=== PATIENT | female | born 1965 | race Caucasian/White ===

== ENCOUNTER 2022-03-21 14:02 | Inpatient (IN) | payer BC, OTHER ==
[~2022-03-21] VITALS: Ht 160 cm; Wt 81.6 kg
[2022-03-21] MEDS ORDERED: LORAZEPAM 2 MG/1 ML VIAL IV ONE ×4 (14:15→21:28)
[2022-03-21 14:23] LABS: HEMATOCRIT 48.5 % (31.2-41.9); MEAN CORPUSCULAR HEMOGLOBIN 34.9 uug (24.7-32.8); MEAN CORPUSCULAR VOLUME 100.9 fL (75.5-95.3); PLATELET COUNT (AUTO) 217 K/uL (179-408)
[2022-03-21] MEDS ORDERED: LORAZEPAM 2 MG/1 ML VIAL ONE ×3 (14:24→17:11)
[2022-03-21 14:35] LABS: CARBON DIOXIDE 19 mmol/L (21-32); CHLORIDE 93 mmol/L (98-107); CREATININE 1.1 mg/dL (0.6-1.3); GLUCOSE 287 mg/dL (74-106); POTASSIUM 3.1 mmol/L (3.5-5.1); UREA NITROGEN, BLOOD 13 mg/dL (7-18)
[2022-03-21 14:41] LABS: ALANINE AMINOTRANSFERASE 81 U/L (14-59); ALKALINE PHOSPHATASE 93 U/L (50-136); ASPARTATE AMINOTRANSFERASE 165 U/L (15-37); BILIRUBIN,DIRECT 0.8 mg/dL (0.0-0.2); BILIRUBIN,TOTAL 2.7 mg/dL (0.2-1.0); TOTAL PROTEIN, SERUM 8.8 g/dL (6.4-8.2)
[2022-03-21] MEDS ORDERED: IV NORMAL SALINE 1000 ML BAG IV ONE (14:45)
[2022-03-21] MEDS ORDERED: ONDANSETRON 4 MG/2 ML VIAL IV ONE (14:45)
[2022-03-21 14:46] LABS: ETHANOL < 3 MG/DL (0-0)
--- NOTE | 2022-03-21 14:55 | NUR ---
Pt HAROLDO CALVILLO, reports pt found by her airborne sensor specialist shaking heavily, recent trip to [place]; also pt thought to have bitten her tongue, possibly due to a SZ. Pt having severe tremors, vomited. Pt denies CP, SOB, dizziness, minor distress noted.
[2022-03-21] MEDS ORDERED: ONDANSETRON 4 MG/2 ML VIAL ONE (14:58)
[2022-03-21] MEDS ORDERED: POTASSIUM CHLORIDE 50 ML ONE ×2 (14:58→16:36)
[2022-03-21 15:15] LABS: *OCCULT BLOOD STOOL POSITIVE (NEGATIVE)
[2022-03-21] MEDS ORDERED: PANTOPRAZOLE SODIUM IV 80 MG in IV DEXTROSE 5% 500 ML IV ONE (15:15)
[2022-03-21] MEDS ORDERED: PANTOPRAZOLE SODIUM IV 80 MG in IV DEXTROSE 5% 100 ML IV ONE (15:15)
[2022-03-21] MEDS ORDERED: IV D5 1/2 NS 1000 ML 1,000 ML IV ONE (15:15)
[2022-03-21] MEDS: POTASSIUM CHLORIDE 50 ML IV SCH ×2 (15:17→16:41)
[2022-03-21 15:44] LABS: ABG BASE EXCESS -3.4 mmol/L; ABG PCO2 36.2 mmHg (35.0-45.0); ABG PH 7.381 (7.350-7.450); ABG PO2 74.7 mmHg (75.0-100.0); ABG SITE RIGHT RADIAL; ABG TOTAL HEMOGLOBIN 16.8 G/dL (12.0-16.0); COHb 1.4 % (0.5-1.5); MetHb 0.3 % (0.0-1.5); O2Hb 92.7 % (94.0-97.0); VENT MODE ROOM AIR
--- NOTE | 2022-03-21 15:55 | NUR ---
Tremors reduced to right arm. Pt has been sleeping.
--- NOTE | 2022-03-21 16:32 | NUR ---
Called report to ONEAL Copeland.
--- NOTE | 2022-03-21 17:20 | NUR ---
administered only 1mg Ativan.
[2022-03-21 18:44] VITALS: BP 159/105
[2022-03-21] MEDS ORDERED: ONDANSETRON 4 MG/2 ML VIAL IV PRN (18:45)
[2022-03-21] MEDS ORDERED: MORPHINE SULFATE 2 MG/1 ML DISP.SYRIN IV PRN (18:45)
[2022-03-21] MEDS ORDERED: ACETAMINOPHEN 325 MG TABLET PO PRN (18:45)
[2022-03-21] MEDS: POTASSIUM CHLORIDE 20 MEQ in IV 1/2NS 1000 ML 1,000 ML IV PRN (20:11)
[2022-03-21] MEDS: LORAZEPAM 2 MG/1 ML VIAL IV PRN (20:13)
[2022-03-21 20:18] VITALS: BP 105/105
--- NOTE | 2022-03-21 20:32 | NUR ---
Patient in bed awake and alert able to make needs known.On RA.No s/s of distress noted. Started to getting anxious of the situation and wants to go home.Risk and benefit explained.Ativan PRN as ordered given. Patient seen and examined by .Clarified order with ATivan 1x dose. Patient dozing intermittently after Ativan ist dose given.IV patent and intact on left FA 20g . Administered IVF with k +20 meq at 80cc/hr. Call light with in reach. Will continue to monitor.
[2022-03-21] MEDS ORDERED: ENALAPRILAT DIHYDRATE 1.25 MG/1 ML VIAL IV PRN (22:00)
[2022-03-21] MEDS: MAGNESIUM SULFATE/D5W 100 ML IV SCH ×2 (22:28→23:27)
--- NOTE | 2022-03-21 23:00 | NUR ---
RELAYED STAT LABS RESULT TO DR. GUZMAN WITH NEW ORDER RECEIVED AND CARRIED OUT.ADMINISTERED MG 3MG IV .NO A/R NOTED.DR GUZMAN MADE AWARE OF PATIENT'S ELEVATED BP.VASOTEC 2.5 MG SLOW IV PUSH GIVEN.WILL CONTINUE TO MONITOR.
[2022-03-22 00:27] VITALS: BP 160/88
[2022-03-22] MEDS: MAGNESIUM SULFATE/D5W 100 ML IV SCH ×3 (00:42→16:29)
[2022-03-22 04:48] VITALS: BP 127/69
[2022-03-22] MEDS ORDERED: PANTOPRAZOLE SODIUM 40 MG TABLET.DR PO SCH (07:00)
[2022-03-22 07:06] LABS: HEMATOCRIT 42.3 % (31.2-41.9); MEAN CORPUSCULAR HEMOGLOBIN 34.8 uug (24.7-32.8); MEAN CORPUSCULAR VOLUME 100.3 fL (75.5-95.3); PLATELET COUNT (AUTO) 158 K/uL (179-408)
[2022-03-22 07:37] LABS: THYROID STIMULATING HORMONE 1.987 mIU/mL (0.358-3.740)
[2022-03-22 07:58] LABS: BILIRUBIN,TOTAL 1.8 mg/dL (0.2-1.0); CREATININE 1.1 mg/dL (0.6-1.3); MAGNESIUM 1.7 mg/dL (1.8-2.4); PHOSPHOROUS 4.4 mg/dL (2.5-4.9); TOTAL PROTEIN, SERUM 7.3 g/dL (6.4-8.2)
--- NOTE | 2022-03-22 08:00 | NUR ---
Received patient in bed awake and alert but she is shaking. Pt is on room air and IV access on the right forearm running 1/2 NS + 20 meq at 80 ccs. Safety precautions are in place. Will continue to monitor.
[2022-03-22 08:31] LABS: POTASSIUM 2.7 mmol/L (3.5-5.1)
[2022-03-22] MEDS: LORAZEPAM 2 MG/1 ML VIAL IV PRN (08:56)
[2022-03-22] MEDS ORDERED: FOLIC ACID 1 MG TABLET PO SCH (09:00)
[2022-03-22] MEDS ORDERED: THIAMINE HCL 100 MG TABLET PO SCH (09:00)
[2022-03-22] MEDS ORDERED: POTASSIUM CHLORIDE 50 ML IV SCH (09:15)
[2022-03-22] MEDS ORDERED: POTASSIUM CHLORIDE 20 MEQ TAB.PRT.SR PO ONE (09:15)
[2022-03-22 10:25] LABS: *BILIRUBIN,URIN 3+ (NEGATIVE); *BLOOD, URINE 1+ (NEGATIVE); *CLARITY,URINE CLEAR (CLEAR); *COLOR,URINE AMBER (YELLOW); *KETONES,URINE 2+ (NEGATIVE); LEUKOCYTE ESTERASE ,URINE NEGATIVE (NEGATIVE); NITRITE, URINE POSITIVE (NEGATIVE); PH,URINE 5.5 (5.0-8.0); UGLUCOSE NEGATIVE (NEGATIVE)
[2022-03-22 10:31] LABS: *AMPHETAMINE, URINE NEGATIVE (NEGATIVE); *CANNABINOID, URINE NEGATIVE (NEGATIVE); *COCCAINE, URINE NEGATIVE (NEGATIVE); *OPIATE, URINE NEGATIVE (NEGATIVE); *PHENCYCLIDINE SCREEN,URINE NEGATIVE (NEGATIVE)
[2022-03-22 11:48] VITALS: BP 106/50
[2022-03-22] MEDS ORDERED: POTASSIUM CHLORIDE 10 MEQ, LIDOCAINE-MPF 1% 1 ML in IV DEXTROSE 5% 100 ML IV SCH (12:00)
[2022-03-22] MEDS: POTASSIUM CHLORIDE 20 MEQ in IV 1/2NS 1000 ML 1,000 ML IV PRN (13:20)
[2022-03-22] MEDS ORDERED: POTASSIUM CHLORIDE 10 MEQ TAB.PRT.SR PO ONE (14:00)
[2022-03-22 16:54] VITALS: BP 116/71
--- NOTE | 2022-03-22 17:25 | NUR ---
Patient pulled out her IV, got dressed and left AMA. She states she has too much to do. I advised her that she is not stable enough to leave the hospital but pt refused. Made MD Adan aware. ID band removed and pt signed AMA form.
[2022-03-23 01:17] LABS: BACTERIA,URINE MODERATE /HPF (NONE SEEN); SQUAMOUS EPITHELIAL CELL,UR MODERATE /HPF (NONE SEEN)
== END 2022-03-22 17:25 | disposition left against medical advice (07) | DRG 894 ==
LOC: ER 14:05 → TELE3 16:58
PROVIDERS: ADMIT Internal Medicine; ATTEND Internal Medicine
DX: F10.239 Alcohol dependence with withdrawal, unspecified (principal); G93.40 Encephalopathy, unspecified; E87.6 Hypokalemia; D72.829 Elevated white blood cell count, unspecified; E53.8 Deficiency of other specified B group vitamins; E66.9 Obesity, unspecified; Z20.822 Contact with and (suspected) exposure to COVID-19; Z91.19 Patient's noncompliance with other medical treatment and regimen; Z68.31 Body mass index [BMI] 31.0-31.9, adult; R74.01 Elevation of levels of liver transaminase levels; R56.9 Unspecified convulsions; R19.5 Other fecal abnormalities; E11.9 Type 2 diabetes mellitus without complications; Y90.0 Blood alcohol level of less than 20 mg/100 ml
CPT/HCPCS: 36415; 36600; 70450; 71045; 83550; 83605; 83690; 83735; 84100; 84443; 84484; 85025; 87086; 93005; A4663; C9113; G0378; G0480; J2001; J2060; J2405; J3475; J3480; J3490; J7040; J7060

== ENCOUNTER 2022-04-05 15:07 | Emergency (ER) | payer SELFPAY ==
[~2022-04-05] VITALS: Ht 162.6 cm; Wt 85.7 kg
--- NOTE | 2022-04-05 15:31 | NUR ---
Dr Munzo at the bedside for MSE.
[2022-04-05] MEDS ORDERED: KETOROLAC TROMETHAMINE 60 MG INJ IM ONE ×2 (15:57→16:00)
--- NOTE | 2022-04-05 16:44 | NUR ---
Pt back from CT scan, resting in bed. NAD noted.
[2022-04-05] MEDS ORDERED: LIDOCAINE HCL 1% 20 ML VIAL ONE (17:04)
[2022-04-05] MEDS ORDERED: LIDOCAINE HCL 1% 20 ML VIAL IJ ONE (17:15)
[2022-04-05] MEDS ORDERED: LIDOCAINE 1%-EPI 1:100,000 20 ML VIAL ONE (17:43)
--- NOTE | 2022-04-05 18:33 | NUR ---
Pt requested to her 's Marbin to be called for pickup @ [phone].
[2022-04-05] MEDS ORDERED: CLIN300C12 PO (18:40)
[2022-04-05] MEDS ORDERED: IBUP800T54 PO (18:40)
[2022-04-05 18:53] VITALS: BP 112/60
--- NOTE | 2022-04-05 18:54 | NUR ---
Patient discharged to home in stable condition. Written and verbal after care instructions given. Patient verbalizes understanding of instructions. Stressed follow up or return to ER for worsening s/s.
--- NOTE | 2022-04-05 18:54 | NUR ---
IV removed. Catheter intact and site benign. Pressure and 4x4 gauze applied to site. No bleeding noted.
== END 2022-04-05 18:54 | disposition home or self-care (01) ==
LOC: ER 15:11
DX: S01.511A Laceration without foreign body of lip, initial encounter (principal); S02.5XXA Fracture of tooth (traumatic), initial encounter for closed fracture; W01.0XXA Fall on same level from slipping, tripping and stumbling without subsequent striking against object, initial encounter; Y92.89 Other specified places as the place of occurrence of the external cause; M54.12 Radiculopathy, cervical region
CPT/HCPCS: 12011; 70450; 96372; 99284; J1885; J3490 ×2; A4663

== ENCOUNTER 2022-11-26 17:54 | Emergency (ER) | payer BC, MEDICAID ==
[~2022-11-26] VITALS: Ht 165.1 cm; Wt 79.4 kg
[~2022-11-26 17:54] MED LIST: CLIN300C12 PO; IBUP800T54 PO
[2022-11-26] MEDS ORDERED: POTA20TA83 MT (18:11)
[2022-11-26] MEDS ORDERED: IV NORMAL SALINE 1000 ML BAG IV ONE (18:45)
[2022-11-26] MEDS ORDERED: THIAMINE HCL 100 MG TABLET PO ONE (18:45)
--- NOTE | 2022-11-26 19:17 | NUR ---
patient sent to er by ambulance from home for etoh, lab drawn vss.safety maintained no tremors.
[2022-11-26 19:27] LABS: CREATININE 0.7 mg/dL (0.6-1.3); POTASSIUM 3.9 mmol/L (3.5-5.1)
[2022-11-26 19:32] LABS: BILIRUBIN,DIRECT 0.2 mg/dL (0.0-0.2); BILIRUBIN,TOTAL 0.5 mg/dL (0.2-1.0); TOTAL PROTEIN, SERUM 8.3 g/dL (6.4-8.2)
[2022-11-26] MEDS ORDERED: LACTULOSE 20 G/30 ML LIQUID UDC PO ONE (19:45)
[2022-11-26 19:47] LABS: HEMATOCRIT 46.7 % (31.2-41.9); MEAN CORPUSCULAR HEMOGLOBIN 35.3 uug (24.7-32.8); MEAN CORPUSCULAR VOLUME 104.3 fL (75.5-95.3); PLATELET COUNT (AUTO) 114 K/uL (179-408)
[2022-11-26] MEDS ORDERED: LACTULOSE 20 G/30 ML LIQUID UDC ONE (19:50)
--- NOTE | 2022-11-26 19:54 | NUR ---
patient refused lactulose. notified
--- NOTE | 2022-11-26 20:33 | NUR ---
's phone number is [phone] - [place]
[2022-11-26] MEDS ORDERED: CYAN-10 IM (20:55)
[2022-11-26] MEDS ORDERED: CHLO25CA22 PO (20:55)
[2022-11-26] MEDS ORDERED: LACT10SO3 PO (20:57)
[2022-11-26] MEDS ORDERED: CYANOCOBALAMIN 1000 MCG/ML VIAL IM ONE (21:00)
[2022-11-26] MEDS ORDERED: CYANOCOBALAMIN 1000 MCG/ML VIAL ONE (21:16)
--- NOTE | 2022-11-26 21:22 | NUR ---
Patient discharged to home in stable condition. Written and verbal after care instructions given. Patient verbalizes understanding of instructions. Stressed follow up or return to ER for worsening s/s. Patient is a/ox4, NAD noted, patient is able to walk with steady gait. accompanied with her
[2022-11-26 21:23] VITALS: BP 120/76
== END 2022-11-26 21:24 | disposition home or self-care (01) ==
LOC: EDBD → MERGE 17:54 → ER 17:54
DX: F10.229 Alcohol dependence with intoxication, unspecified (principal); Y90.8 Blood alcohol level of 240 mg/100 ml or more; E53.8 Deficiency of other specified B group vitamins; D69.6 Thrombocytopenia, unspecified; E72.20 Disorder of urea cycle metabolism, unspecified; R03.0 Elevated blood-pressure reading, without diagnosis of hypertension; S00.12XD Contusion of left eyelid and periocular area, subsequent encounter; S00.11XD Contusion of right eyelid and periocular area, subsequent encounter; V49.9XXD Car occupant (driver) (passenger) injured in unspecified traffic accident, subsequent encounter
CPT/HCPCS: 80076; 80048; 82140; 82607; 85025; 85730; 36415; 70450; 99285; 96360; 96361; 96372; 80320; J3420; A4663; G0480

== ENCOUNTER 2023-01-21 21:16 | Emergency (ER) | payer BC, MEDICAID ==
[~2023-01-21] VITALS: Ht 162.6 cm; Wt 79.4 kg
[~2023-01-21 21:16] MED LIST changes: +CHLO25CA22 PO; +CYAN-10 IM; +LACT10SO3 PO; +POTA20TA83 MT
[2023-01-21] MEDS ORDERED: THIAMINE HCL 100 MG TABLET PO ONE ×2 (21:30→22:30)
[2023-01-21 22:34] LABS: HEMATOCRIT 42.8 % (31.2-41.9); MEAN CORPUSCULAR HEMOGLOBIN 34.8 uug (24.7-32.8); PLATELET COUNT (AUTO) 220 K/uL (179-408)
[2023-01-21] MEDS ORDERED: THIAMINE HCL 100 MG TABLET ONE (22:36)
[2023-01-21 22:58] LABS: BILIRUBIN,DIRECT 0.3 mg/dL (0.0-0.2); BILIRUBIN,TOTAL 0.8 mg/dL (0.2-1.0); CREATININE 0.9 mg/dL (0.6-1.3); POTASSIUM 3.2 mmol/L (3.5-5.1); TOTAL PROTEIN, SERUM 7.5 g/dL (6.4-8.2)
[2023-01-21] MEDS ORDERED: MAGNESIUM SULFATE/D5W 100 ML IV SCH (23:00)
--- NOTE | 2023-01-21 23:06 | NUR ---
Patient does not wish to proceed with medical care recommended by Dr. Fish. Patient given information related to possible complications, up to and including , which could occur as a result of leaving the hospital at this time. Patient verbalizes understanding of risks involved due to leaving against medical advice. Patient has signed AMA form. Patient walked out with steady gait.
[2023-01-21] MEDS ORDERED: MAGNESIUM SULFATE/D5W 400 ML ONE (23:09)
== END 2023-01-22 00:08 | disposition left against medical advice (07) ==
LOC: ER 21:17
DX: F10.129 Alcohol abuse with intoxication, unspecified (principal); E83.42 Hypomagnesemia; E83.51 Hypocalcemia; R74.01 Elevation of levels of liver transaminase levels; M25.561 Pain in right knee; Z79.1 Long term (current) use of non-steroidal anti-inflammatories (NSAID); Z79.2 Long term (current) use of antibiotics; Z79.899 Other long term (current) drug therapy; Y90.8 Blood alcohol level of 240 mg/100 ml or more
CPT/HCPCS: 36415; 83735; 85025; A4663; G0480; J3475

== ENCOUNTER 2023-02-09 15:38 | Inpatient (IN) | payer BC, MEDICAID ==
[~2023-02-09] VITALS: Ht 162.6 cm; Wt 79.4 kg
[2023-02-09] MEDS ORDERED: IV NORMAL SALINE 1000 ML BAG IV ONE ×2 (15:45→16:45)
[2023-02-09] MEDS ORDERED: LORAZEPAM 2 MG/1 ML VIAL IV ONE ×2 (15:45→19:30)
[2023-02-09 15:58] LABS: HEMATOCRIT 42.7 % (31.2-41.9); MEAN CORPUSCULAR HEMOGLOBIN 35.2 uug (24.7-32.8); MEAN CORPUSCULAR VOLUME 101.7 fL (75.5-95.3); PLATELET COUNT (AUTO) 161 K/uL (179-408)
[2023-02-09] MEDS ORDERED: LORAZEPAM 2 MG/1 ML VIAL ONE ×3 (16:10→19:42)
[2023-02-09 16:13] LABS: BILIRUBIN,TOTAL 1.8 mg/dL (0.2-1.0); CARBON DIOXIDE 27 mmol/L (21-32); CREATININE 0.9 mg/dL (0.6-1.3); TOTAL PROTEIN, SERUM 8.2 g/dL (6.4-8.2); UREA NITROGEN, BLOOD 6 mg/dL (7-18)
[2023-02-09 16:14] LABS: ETHANOL < 3 MG/DL (0-0)
[2023-02-09 16:30] LABS: GLUCOSE 318 mg/dL (74-106)
[2023-02-09 16:40] LABS: ALKALINE PHOSPHATASE 112 U/L (50-136); ASPARTATE AMINOTRANSFERASE 207 U/L (15-37); BILIRUBIN,DIRECT 0.6 mg/dL (0.0-0.2); CHLORIDE 89 mmol/L (98-107)
[2023-02-09] MEDS ORDERED: THIAMINE HCL 200 MG/2 ML VIAL IV ONE (16:45)
[2023-02-09] MEDS ORDERED: ONDANSETRON 4 MG/2 ML VIAL IV ONE (16:45)
[2023-02-09] MEDS ORDERED: FOLIC ACID 5 MG/ML VIAL IV ONE (16:45)
[2023-02-09 16:47] LABS: POTASSIUM 2.6 mmol/L (3.5-5.1)
[2023-02-09 16:56] LABS: ALANINE AMINOTRANSFERASE 88 U/L (14-59)
[2023-02-09] MEDS ORDERED: POTASSIUM CHLORIDE 20 MEQ TAB.PRT.SR PO ONE (17:00)
[2023-02-09] MEDS ORDERED: POTASSIUM CHLORIDE 10 MEQ TAB.PRT.SR ONE (17:10)
[2023-02-09 17:19] LABS: PHOSPHOROUS 3.7 mg/dL (2.5-4.9)
[2023-02-09 17:21] LABS: MAGNESIUM 0.4 mg/dL (1.8-2.4)
[2023-02-09] MEDS ORDERED: MAGNESIUM SULFATE 2 GM in IV DEXTROSE 5% 100 ML IV ONE (17:30)
[2023-02-09] MEDS ORDERED: FOLIC ACID 1 MG in IV DEXTROSE 5% 50 ML IV ONE (17:30)
[2023-02-09] MEDS: POTASSIUM CHLORIDE 50 ML IV SCH ×4 (18:00→20:28)
[2023-02-09] MEDS ORDERED: POTASSIUM CHLORIDE 50 ML ONE ×3 (19:04→20:22)
--- NOTE | 2023-02-09 19:43 | NUR ---
Pulled out additional Lorazepam 1mg IV. Medication not given. Charge Nurse Emory NO witness.
[2023-02-09] MEDS ORDERED: MAGNESIUM SULFATE/D5W 200 ML ONE (20:20)
[2023-02-09] MEDS ORDERED: ONDANSETRON 4 MG/2 ML VIAL IV PRN (20:30)
[2023-02-09] MEDS ORDERED: ACETAMINOPHEN 325 MG TABLET PO PRN (20:30)
[2023-02-09] MEDS ORDERED: MORPHINE SULFATE 2 MG/1 ML DISP.SYRIN IV PRN (20:30)
[2023-02-09] MEDS ORDERED: MAG HYDROX/AL HYDROX/SIMETH 30 ML LIQUID UDC PO PRN (20:30)
--- NOTE | 2023-02-09 21:35 | NUR ---
Report given to Elaine NO.
[2023-02-09 22:00] VITALS: BP 119/89
--- NOTE | 2023-02-09 22:45 | NUR ---
1L NS given at 16:41 and Zofran 4mg IV given at 1703. Reassessment not done by previous nurse. Marked as not done. Patient denies N/V.
--- NOTE | 2023-02-09 22:58 | NUR ---
Patient taken to third floor room 315 via gurney with personal belongings. Patient in stable condition, no signs of distress. Elaine NO aware of patient's arrival.
--- NOTE | 2023-02-09 23:00 | NUR ---
Received patient from ER via gurney, awake alert and oriented x 2, very shaky. Dx: ETOH withdrawal. No noted resp distress. Sinus tachy on tele with HR 119. Routine admission care rendered, oriented to room, TV, BR and call light. Care plan initiated. Needs assessed and attended to.
[2023-02-10] VITALS: BP 116/78
[2023-02-10] MEDS ORDERED: IV 0.9% SODIUM CHLORID+ 20 KCL 1,000 ML ONE (00:58)
[2023-02-10] MEDS: POTASSIUM CHLORIDE 20 MEQ in IV NS 1000 ML 1,000 ML IV PRN ×2 (01:24→16:15)
[2023-02-10 05:37] VITALS: BP 120/91
--- NOTE | 2023-02-10 06:57 | NUR ---
Ashley leal in [facility] - 02/10/23 at 0658 by SUNI Ativan 1mg wasted with Charge nurse Magan NO.
--- NOTE | 2023-02-10 06:58 | NUR ---
Ativan 1mg IV wasted with Charge nurse Emory NO.
[2023-02-10 07:22] LABS: HEMATOCRIT 36.4 % (31.2-41.9); MEAN CORPUSCULAR HEMOGLOBIN 35.3 uug (24.7-32.8); MEAN CORPUSCULAR VOLUME 103.5 fL (75.5-95.3); PLATELET COUNT (AUTO) 113 K/uL (179-408)
[2023-02-10] MEDS: LORAZEPAM 2 MG/1 ML VIAL IV PRN ×2 (07:31→12:09)
--- NOTE | 2023-02-10 07:53 | NUR ---
RECEIVED PATIENT IN BED ALERT BUT DISORIENTED AND FIDGETING GOING THROUGH HER PURSE OVER AND OVER AGAIN NOT KNOWN WHAT SHE IS LOOKING FOR NOTED WITH TREMORS OF BOTH ARMS PATIENT WAS JUST GIVEN ATIVAN BY THE NOC RN WILL ACCESS EFFECTIVENESS.REMAIN ON IVF ORDERED CALL LIGHT AND HER PERSONAL BELONGINGS ARE WITHIN EASY REACH AT THIS TIME WILL CONTINUE TO OBSERVE.
[2023-02-10 07:54] LABS: THYROID STIMULATING HORMONE 1.793 mIU/mL (0.358-3.740)
[2023-02-10] MEDS: MULTIVITAMINS,THERAPEUTIC TABLET PO SCH (08:46)
[2023-02-10] MEDS: THIAMINE HCL 100 MG TABLET PO SCH (08:46)
[2023-02-10] MEDS: FOLIC ACID 1 MG TABLET PO SCH (08:46)
[2023-02-10] MEDS: PANTOPRAZOLE SODIUM 40 MG VIAL IV SCH (08:46)
[2023-02-10 10:00] LABS: ALANINE AMINOTRANSFERASE 70 U/L (14-59); ALKALINE PHOSPHATASE 76 U/L (50-136); ASPARTATE AMINOTRANSFERASE 153 U/L (15-37); BILIRUBIN,TOTAL 1.3 mg/dL (0.2-1.0); CARBON DIOXIDE 29 mmol/L (21-32); CHLORIDE 98 mmol/L (98-107); CHOLESTEROL 277 mg/dL (<200); CREATININE 0.8 mg/dL (0.6-1.3); GLUCOSE 97 mg/dL (74-106); HDL CHOLESTEROL 156 mg/dL (40-60); PHOSPHOROUS 2.4 mg/dL (2.5-4.9); POTASSIUM 3.1 mmol/L (3.5-5.1); TOTAL PROTEIN, SERUM 6.9 g/dL (6.4-8.2); TRIGLYCERIDES 56 MG/DL (30-150); UREA NITROGEN, BLOOD 7 mg/dL (7-18)
[2023-02-10 10:18] LABS: MAGNESIUM 0.9 mg/dL (1.8-2.4)
--- NOTE | 2023-02-10 10:42 | NUR ---
Social Work consult requested for alcohol abuse resources. Patient is a 57 year old female admitted to the hospital for ETOH withdrawal. Patient is alert and oriented X3 and presents with anxious mood and congruent affect. Patient appears to be withdrawing from alcohol with arm tremors. Patient states her primary contact is her , Marbin ([phone]) and she lives with him in a one story house at [address] [place] [address]. 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 Patient states she has a history of alcohol abuse and her last drink was four or five days ago. SW provided the patient with resources for [address] [address] ([phone]), [facility] [address] [facility] [address] ([phone]), and [address] [address] ([phone]). SW placed the resources in the patients chart. Patient appeared appreciative of the resources and ambivalent about treatment. Patient denies a history of psychiatric diagnosis and denies suicidal or homicidal ideation. Patient discharge plan is for her , Marbin, to take her home to [address] [place] [address].
[2023-02-10 10:59] LABS: LIPASE 67 U/L (73-393)
[2023-02-10] MEDS ORDERED: PIPERACILLIN SODIUM/TAZOBACTAM 3.375 G in IV DEXTROSE 5% 50 ML IV SCH (11:00)
[2023-02-10] MEDS ORDERED: PIPERACILLIN SODIUM/TAZOBACTAM 3.375 G in IV DEXTROSE 5% 50 ML IV ONE (11:00)
[2023-02-10] MEDS ORDERED: POTASSIUM CHLORIDE 20 MEQ TAB.PRT.SR PO ONE (11:00)
[2023-02-10] MEDS ORDERED: SWABABLE VALVE TRANSFER SET EA MC ONE (11:36)
[2023-02-10] MEDS ORDERED: IOHEXOL 300MG/ML 100 ML INFUS..BTL ONE (11:36)
[2023-02-10] MEDS ORDERED: IV NORMAL SALINE 250 ML IV ONE (11:37)
--- NOTE | 2023-02-10 11:38 | NUR ---
PATIENT SWEEN BY DR GUZMAN PATIENT IS FOR CT ABDOMEN AND PELVIS WITH CONTRAST WILL KEEP PATIENT NPO UNTIL AFTER THE TEST IS DONE.
[2023-02-10 11:47] VITALS: BP 134/63
--- NOTE | 2023-02-10 12:09 | NUR ---
PATIENT IS HAS TREMORS AND SHAKINESS OF BOTH UPPER EXTREMITY AGITATED AND RESTLESS TALKING ABOUT GOING HOME REASSURED THAT SHE NEEDS TO BE HERE FOR THE MEANTIME BECAUSE OF HER ABNORMAL LABS AND HER HAVING FEBRILE CONDITION LAST NOC.MEDICATED WITH ATIVAN ORDERED TO HELP SETTLE HER DOWN WILL CONTINUE TO OBSERVE.
--- NOTE | 2023-02-10 12:30 | NUR ---
MAGNESSIUM LEVEL IS 0.9,POTASSIUM LEVEL IS 3.1 WITH REPLACEMENT ORDERS AND NOTED.
--- NOTE | 2023-02-10 12:36 | NUR ---
PICKED UP BY BED TO CT ORDERED PATIENT WAS KEPT NPO FOR THIS TEST.
[2023-02-10] MEDS: MAGNESIUM SULFATE/D5W 100 ML IV SCH ×3 (13:14→15:17)
[2023-02-10] MEDS: CLOTRIMAZOLE 1% CREAM 30 GM TUBE TOP SCH ×2 (15:21→20:49)
[2023-02-10] MEDS: REMEDY ESSENTIAL ZINC PASTE 113 GM TOP SCH ×3 (15:21→21:26)
--- NOTE | 2023-02-10 15:31 | NUR ---
PATIENT IS IN DEEP SLEEP AT THIS TIME REMOVES HER O2 CANULA AT TIMES REPLACED MADE COMFORTABLE WILL OBSERVE.
[2023-02-10 15:52] VITALS: BP 113/71
[2023-02-10] MEDS ORDERED: NEUTRA PHOS PACKET PO ONE (16:00)
[2023-02-10] MEDS: PIPERACILLIN SODIUM/TAZOBACTAM 3.375 G in IV DEXTROSE 5% 100 ML IV SCH (17:35)
--- NOTE | 2023-02-10 18:00 | NUR ---
SITTING UP IN BED EATING DINNER AT THIS TIME ALERT BUT STILL MIXED UP PHOS REPLACED ORDERED WILL CONTINUE TO OBSERVE.
[2023-02-10 20:00] VITALS: BP 119/56
[2023-02-11] VITALS: BP 129/84
[2023-02-11] MEDS: PIPERACILLIN SODIUM/TAZOBACTAM 3.375 G in IV DEXTROSE 5% 100 ML IV SCH (02:05)
[2023-02-11 04:43] VITALS: BP 140/77
[2023-02-11] MEDS: POTASSIUM CHLORIDE 20 MEQ in IV NS 1000 ML 1,000 ML IV PRN (05:27)
[2023-02-11 06:41] LABS: HEMATOCRIT 34.7 % (31.2-41.9); MEAN CORPUSCULAR HEMOGLOBIN 36.1 uug (24.7-32.8); MEAN CORPUSCULAR VOLUME 105.2 fL (75.5-95.3); PLATELET COUNT (AUTO) 104 K/uL (179-408)
[2023-02-11 06:58] LABS: BILIRUBIN,TOTAL 1.1 mg/dL (0.2-1.0); CREATININE 0.8 mg/dL (0.6-1.3); MAGNESIUM 1.6 mg/dL (1.8-2.4); PHOSPHOROUS 3.3 mg/dL (2.5-4.9); POTASSIUM 3.6 mmol/L (3.5-5.1); TOTAL PROTEIN, SERUM 6.3 g/dL (6.4-8.2)
--- NOTE | 2023-02-11 08:00 | NUR ---
Received pt. lying in bed, awake alert and oriented with ongoing IVF NS + KCL 20 meq @ 80ml/hr infusing well. SR on tele HR 98, O2 sat at 99%. Not in distress, no complain. Attended
[2023-02-11] MEDS: PANTOPRAZOLE SODIUM 40 MG VIAL IV SCH (08:29)
[2023-02-11] MEDS: MULTIVITAMINS,THERAPEUTIC TABLET PO SCH (08:30)
[2023-02-11] MEDS: CLOTRIMAZOLE 1% CREAM 30 GM TUBE TOP SCH (08:30)
[2023-02-11] MEDS: THIAMINE HCL 100 MG TABLET PO SCH (08:30)
[2023-02-11] MEDS: REMEDY ESSENTIAL ZINC PASTE 113 GM TOP SCH (08:30)
[2023-02-11] MEDS: FOLIC ACID 1 MG TABLET PO SCH (08:30)
[2023-02-11] MEDS ORDERED: POTASSIUM CHLORIDE 20 MEQ TAB.PRT.SR PO ONE (09:30)
[2023-02-11] MEDS ORDERED: MAGNESIUM OXIDE 400 MG TABLET PO ONE (09:30)
--- NOTE | 2023-02-11 10:00 | NUR ---
Patient requested to do AMA signed form. Informed Dr. Adan and charge nurse Ms. Mak. Removed IV catheter at left forearm clean and dry. Removed tele monitor. No discharge summary given, vital signs are stable at the time of discharge Assisted patient going down with HEEL SEAT POUNDER and using wheel chair. 1030 - Discharge patient
[2023-02-11] MEDS ORDERED: MAGNESIUM SULFATE/D5W 100 ML IV SCH (12:00)
== END 2023-02-11 10:30 | disposition left against medical advice (07) | DRG 248 ==
LOC: ER 15:38 → TELE3 21:42
PROVIDERS: ADMIT Internal Medicine; ATTEND Internal Medicine
DX: A04.9 Bacterial intestinal infection, unspecified (principal); G93.40 Encephalopathy, unspecified; D69.6 Thrombocytopenia, unspecified; E87.20 Acidosis, unspecified; M48.56XA Collapsed vertebra, not elsewhere classified, lumbar region, initial encounter for fracture; E87.1 Hypo-osmolality and hyponatremia; E87.6 Hypokalemia; K70.10 Alcoholic hepatitis without ascites; K70.9 Alcoholic liver disease, unspecified; R56.9 Unspecified convulsions; D75.89 Other specified diseases of blood and blood-forming organs; E66.9 Obesity, unspecified; F10.239 Alcohol dependence with withdrawal, unspecified; Z68.30 Body mass index [BMI] 30.0-30.9, adult; S01.512A Laceration without foreign body of oral cavity, initial encounter; X58.XXXA Exposure to other specified factors, initial encounter; Y92.89 Other specified places as the place of occurrence of the external cause; M48.061 Spinal stenosis, lumbar region without neurogenic claudication; Z20.822 Contact with and (suspected) exposure to COVID-19; R00.0 Tachycardia, unspecified; K57.30 Diverticulosis of large intestine without perforation or abscess without bleeding; E53.8 Deficiency of other specified B group vitamins; Z91.199 Patient's noncompliance with other medical treatment and regimen due to unspecified reason; K76.0 Fatty (change of) liver, not elsewhere classified; R73.03 Prediabetes
CPT/HCPCS: 36415; 70450; 71045; 83690; 83735; 84100; 84443; 84484; 85025; 93005; A4663; C9113; G0378; G0480; J2060; J2405; J2543; J3411; J3475; J3480; J3490; J7040; Q9967

== ENCOUNTER 2023-02-14 18:36 | Emergency (ER) | payer BC ==
[~2023-02-14] VITALS: Ht 162.6 cm; Wt 79.4 kg
--- NOTE | 2023-02-14 18:41 | NUR ---
Pt seen by MD for bedside eval. Safety measures in place. Will continue to monitor.
[2023-02-14] MEDS ORDERED: TDAP DIPH,PERTUSS,TET VAC/PF 0.5 ML DISP.SYRIN IM ONE ×2 (18:58→19:00)
--- NOTE | 2023-02-14 19:05 | NUR ---
Received report from ONEAL Ramesh.
[2023-02-14] MEDS ORDERED: ACETAMINOPHEN ES 500 MG TABLET PO ONE (20:15)
[2023-02-14] MEDS ORDERED: IBUPROFEN 600 MG TABLET PO ONE (20:15)
[2023-02-14] MEDS ORDERED: ACETAMINOPHEN ES 500 MG TABLET ONE (20:20)
[2023-02-14] MEDS ORDERED: IBUPROFEN 600 MG TABLET ONE (20:20)
--- NOTE | 2023-02-14 20:50 | NUR ---
Patient discharged to home in stable condition. NAD noted. No changes in mental status. A/O x 4. Ambulatory with a steady gait. Written and verbal after care instructions given. Patient verbalizes understanding of instructions. Stressed follow up or return to ER for worsening s/s.
[2023-02-14 20:52] VITALS: BP 120/86
== END 2023-02-14 20:52 | disposition home or self-care (01) ==
LOC: ER 18:37
DX: S00.31XA Abrasion of nose, initial encounter (principal); S00.511A Abrasion of lip, initial encounter; E87.6 Hypokalemia; Z79.1 Long term (current) use of non-steroidal anti-inflammatories (NSAID); Z79.2 Long term (current) use of antibiotics; Z79.899 Other long term (current) drug therapy; W01.0XXA Fall on same level from slipping, tripping and stumbling without subsequent striking against object, initial encounter; Y93.89 Activity, other specified; Y92.89 Other specified places as the place of occurrence of the external cause; Y99.8 Other external cause status
CPT/HCPCS: 70450; 72125; 90715; A4663; A9150

== ENCOUNTER 2023-02-24 11:48 | Emergency (ER) | payer BC ==
[~2023-02-24] VITALS: Ht 162.6 cm; Wt 79.4 kg
--- NOTE | 2023-02-24 11:55 | NUR ---
Dr Arguelles at the bedside for MSE.
[2023-02-24] MEDS ORDERED: LORAZEPAM 2 MG/1 ML VIAL IV ONE ×4 (12:00→16:00)
[2023-02-24] MEDS ORDERED: IV NORMAL SALINE 1000 ML BAG IV ONE ×2 (12:00→15:00)
[2023-02-24] MEDS ORDERED: LORAZEPAM 2 MG/1 ML VIAL ONE ×4 (12:09→16:01)
[2023-02-24 12:18] LABS: MEAN CORPUSCULAR HEMOGLOBIN 35.9 uug (24.7-32.8); PLATELET COUNT (AUTO) 188 K/uL (179-408)
[2023-02-24 13:08] LABS: CREATININE 0.9 mg/dL (0.6-1.3); POTASSIUM 3.1 mmol/L (3.5-5.1)
[2023-02-24 13:14] LABS: BILIRUBIN,DIRECT 0.7 mg/dL (0.0-0.2); BILIRUBIN,TOTAL 2.1 mg/dL (0.2-1.0); TOTAL PROTEIN, SERUM 8.3 g/dL (6.4-8.2)
[2023-02-24] MEDS ORDERED: POTASSIUM CHLORIDE 20 MEQ TAB.PRT.SR PO ONE (13:30)
[2023-02-24] MEDS ORDERED: THIAMINE HCL 100 MG TABLET PO ONE (13:30)
[2023-02-24] MEDS ORDERED: FOLIC ACID 1 MG TABLET PO ONE (13:30)
[2023-02-24] MEDS ORDERED: POTASSIUM CHLORIDE 20 MEQ TAB.PRT.SR ONE (13:35)
[2023-02-24] MEDS ORDERED: FOLIC ACID 1 MG TABLET ONE (13:35)
[2023-02-24] MEDS ORDERED: THIAMINE HCL 100 MG TABLET ONE (13:35)
--- NOTE | 2023-02-24 14:26 | NUR ---
Pt resting in bed w/ both eyes closed, NAD noted, continue monitoring, safety measures in place.
--- NOTE | 2023-02-24 16:00 | NUR ---
Pt remaines tremblous, but still awake A/O x4. Dr Arguelles speaking to Pt regarding plan of care.
--- NOTE | 2023-02-24 16:11 | NUR ---
COVID swab collected and sent to LAB.
--- NOTE | 2023-02-24 16:30 | NUR ---
Spoke to Portia, telehealth case manager for possible transfer to [facility].
--- NOTE | 2023-02-24 16:48 | NUR ---
Pt's face sheet and clinical faxed to Portia per her request.
[2023-02-24 16:55] LABS: PHOSPHOROUS 3.5 mg/dL (2.5-4.9)
[2023-02-24 16:57] LABS: MAGNESIUM 0.5 mg/dL (1.8-2.4)
[2023-02-24] MEDS ORDERED: MAGNESIUM OXIDE 400 MG TABLET ONE (17:11)
[2023-02-24] MEDS ORDERED: MAGNESIUM OXIDE 400 MG TABLET PO ONE (17:15)
[2023-02-24] MEDS ORDERED: CHLO25CA22 PO (17:22)
--- NOTE | 2023-02-24 17:37 | NUR ---
IV removed. Catheter intact and site benign. Pressure and 4x4 gauze applied to site. No bleeding noted.
--- NOTE | 2023-02-24 17:37 | NUR ---
Patient does not wish to proceed with medical care recommended by Dr. Dugan). Patient given information related to possible complications, up to and including , which could occur as a result of leaving the hospital at this time. Patient verbalizes understanding of risks involved due to leaving against medical advice. Patient has signed AMA form.
[2023-02-24 17:39] VITALS: BP 155/104
== END 2023-02-24 17:41 | disposition left against medical advice (07) ==
LOC: ER 11:48
DX: F10.239 Alcohol dependence with withdrawal, unspecified (principal); E87.6 Hypokalemia; E83.42 Hypomagnesemia; D75.89 Other specified diseases of blood and blood-forming organs; R74.01 Elevation of levels of liver transaminase levels; R07.89 Other chest pain; Z79.899 Other long term (current) drug therapy; Z20.822 Contact with and (suspected) exposure to COVID-19; Y90.9 Presence of alcohol in blood, level not specified
CPT/HCPCS: 99285; 96374; 96361; 71045; 87426; 80076; 80048; 83690; 83735; 84100; 85025; 36415; 93005; 96376; 83605; J2060 ×4; J7040 ×2; A4663

== ENCOUNTER 2023-03-04 14:59 | Inpatient (IN) | payer BC ==
[~2023-03-04] VITALS: Ht 167.6 cm; Wt 79.4 kg
[~2023-03-04 14:59] MED LIST changes: -CLIN300C12 PO; -CYAN-10 IM; -IBUP800T54 PO; -LACT10SO3 PO; -POTA20TA83 MT
[2023-03-04] MEDS ORDERED: IV NORMAL SALINE 1000 ML BAG IV ONE (15:15)
[2023-03-04 15:21] LABS: HEMATOCRIT 44.8 % (31.2-41.9); MEAN CORPUSCULAR HEMOGLOBIN 35.6 uug (24.7-32.8); MEAN CORPUSCULAR VOLUME 106.4 fL (75.5-95.3); PLATELET COUNT (AUTO) 319 K/uL (179-408)
[2023-03-04 15:33] LABS: ETHANOL < 3 MG/DL (0-0)
[2023-03-04 15:38] LABS: BILIRUBIN,DIRECT 0.7 mg/dL (0.0-0.2); BILIRUBIN,TOTAL 2.2 mg/dL (0.2-1.0); CREATININE 2.3 mg/dL (0.6-1.3); TOTAL PROTEIN, SERUM 8.3 g/dL (6.4-8.2)
[2023-03-04] MEDS ORDERED: POTASSIUM CHLORIDE 40 MEQ in IV NS 1000 ML 1,000 ML IV STA (15:45)
[2023-03-04] MEDS ORDERED: MAGNESIUM SULFATE/D5W 100 ML IV STA (15:45)
[2023-03-04 15:46] LABS: POTASSIUM 2.6 mmol/L (3.5-5.1)
[2023-03-04 15:47] LABS: MAGNESIUM 0.6 mg/dL (1.8-2.4)
[2023-03-04] MEDS ORDERED: POTASSIUM CHLORIDE 0 ML ONE (15:50)
[2023-03-04] MEDS ORDERED: MAGNESIUM SULFATE/D5W 100 ML ONE ×2 (15:54→22:04)
[2023-03-04] MEDS ORDERED: LORAZEPAM 2 MG/1 ML VIAL IV ONE ×2 (16:00→16:15)
[2023-03-04] MEDS ORDERED: POTASSIUM CHLORIDE 20 MEQ TAB.PRT.SR ONE (16:00)
[2023-03-04] MEDS ORDERED: POTASSIUM CHLORIDE 20 MEQ TAB.PRT.SR PO ONE (16:00)
[2023-03-04] MEDS ORDERED: LORAZEPAM 2 MG/1 ML VIAL ONE ×2 (16:01→16:19)
[2023-03-04] MEDS ORDERED: THIAMINE HCL 100 MG TABLET PO ONE (16:15)
[2023-03-04] MEDS ORDERED: FOLIC ACID 1 MG TABLET PO ONE (16:15)
[2023-03-04] MEDS ORDERED: FOLIC ACID 1 MG TABLET ONE (16:18)
[2023-03-04] MEDS ORDERED: THIAMINE HCL 100 MG TABLET ONE (16:19)
[2023-03-04] MEDS ORDERED: FOLIC ACID 1 MG in IV DEXTROSE 5% 50 ML IV SCH (21:00)
[2023-03-04] MEDS ORDERED: ONDANSETRON 4 MG/2 ML VIAL IV PRN (21:00)
[2023-03-04] MEDS ORDERED: LORAZEPAM 2 MG/1 ML VIAL IV PRN (21:00)
[2023-03-04] MEDS ORDERED: REMEDY ESSENTIAL ZINC PASTE 113 GM TP PRN (21:00)
[2023-03-04] MEDS ORDERED: ACETAMINOPHEN 325 MG TABLET PO PRN (21:00)
[2023-03-04] MEDS ORDERED: MAGNESIUM HYDROXIDE 30 ML LIQUID UDC PO PRN (21:00)
[2023-03-04] MEDS ORDERED: THIAMINE HCL INJ 100 MG in IV DEXTROSE 5% 50 ML IV SCH (21:00)
[2023-03-04 21:29] LABS: BILIRUBIN,TOTAL 2.1 mg/dL (0.2-1.0); CREATININE 2.3 mg/dL (0.6-1.3); TOTAL PROTEIN, SERUM 8.4 g/dL (6.4-8.2)
[2023-03-04 21:45] LABS: MAGNESIUM 0.6 mg/dL (1.8-2.4); POTASSIUM 2.5 mmol/L (3.5-5.1)
[2023-03-04] MEDS ORDERED: POTASSIUM BICARBONATE/CIT AC 25 MEQ TABLET.EFF PO ONE (22:00)
[2023-03-04] MEDS: MAGNESIUM SULFATE/D5W 100 ML IV SCH ×3 (22:04→23:46)
[2023-03-04] MEDS ORDERED: POTASSIUM BICARBONATE/CIT AC 25 MEQ TABLET.EFF ONE (22:04)
[2023-03-04] MEDS ORDERED: MAGNESIUM SULFATE/D5W 200 ML ONE (22:22)
[2023-03-04] MEDS ORDERED: THIAMINE HCL 200 MG/2 ML VIAL ONE (22:59)
[2023-03-04] MEDS ORDERED: FOLIC ACID 5 MG/ML VIAL IV ONE (22:59)
[2023-03-04] MEDS ORDERED: DEXTROSE 50% 50 ML DISP.SYRIN IV PRN (23:45)
[2023-03-05 04:50] VITALS: BP 152/60
[2023-03-05] MEDS: PANTOPRAZOLE SODIUM 40 MG TABLET.DR PO SCH (07:00)
[2023-03-05] MEDS: BLOOD SUGAR DIAGNOSTIC 1 EACH STRIP VI SCH ×4 (07:06→21:13)
[2023-03-05 07:29] LABS: HEMATOCRIT 40.9 % (31.2-41.9); MEAN CORPUSCULAR HEMOGLOBIN 35.9 uug (24.7-32.8); MEAN CORPUSCULAR VOLUME 105.5 fL (75.5-95.3); PLATELET COUNT (AUTO) 225 K/uL (179-408)
[2023-03-05 08:12] LABS: CREATININE 1.2 mg/dL (0.6-1.3); MAGNESIUM 2.7 mg/dL (1.8-2.4); PHOSPHOROUS 3.8 mg/dL (2.5-4.9); POTASSIUM 3.3 mmol/L (3.5-5.1)
[2023-03-05] MEDS: CHLORDIAZEPOXIDE HCL 25 MG CAPSULE PO SCH ×3 (08:38→17:16)
[2023-03-05] MEDS: MULTIVITAMINS,THERAPEUTIC TABLET GT SCH (08:38)
[2023-03-05] MEDS: INSULIN REGULAR, HUMAN 300 UNIT/3 ML VIAL SQ PRN ×4 (08:40→21:16)
[2023-03-05] MEDS ORDERED: POTASSIUM CHLORIDE 20 MEQ TAB.PRT.SR PO ONE (09:30)
[2023-03-05 12:00] VITALS: BP 106/45
[2023-03-05 16:00] VITALS: BP 107/74
[2023-03-05 20:00] VITALS: BP 99/66
[2023-03-05] MEDS ORDERED: FOLIC ACID 1 MG TABLET PO SCH (21:00)
[2023-03-05] MEDS ORDERED: THIAMINE HCL 100 MG TABLET PO SCH (21:00)
[2023-03-06] VITALS: BP 118/79
[2023-03-06 04:00] VITALS: BP 122/61
[2023-03-06] MEDS: PANTOPRAZOLE SODIUM 40 MG TABLET.DR PO SCH (06:13)
[2023-03-06] MEDS: BLOOD SUGAR DIAGNOSTIC 1 EACH STRIP VI SCH (06:37)
[2023-03-06 07:15] LABS: HEMATOCRIT 36.4 % (31.2-41.9); MEAN CORPUSCULAR HEMOGLOBIN 36.3 uug (24.7-32.8); PLATELET COUNT (AUTO) 176 K/uL (179-408)
[2023-03-06 07:31] LABS: BILIRUBIN,DIRECT 0.6 mg/dL (0.0-0.2); BILIRUBIN,TOTAL 1.7 mg/dL (0.2-1.0); CREATININE 1.1 mg/dL (0.6-1.3); MAGNESIUM 1.8 mg/dL (1.8-2.4); PHOSPHOROUS 2.5 mg/dL (2.5-4.9); POTASSIUM 3.3 mmol/L (3.5-5.1); TOTAL PROTEIN, SERUM 6.7 g/dL (6.4-8.2)
[2023-03-06] MEDS: CHLORDIAZEPOXIDE HCL 25 MG CAPSULE PO SCH (09:00)
[2023-03-06] MEDS: MULTIVITAMINS,THERAPEUTIC TABLET GT SCH (09:00)
== END 2023-03-06 09:15 | disposition left against medical advice (07) | DRG 53 ==
LOC: ER 14:59 → TELE-TD3 21:39 → TELE3 23:15
PROVIDERS: ADMIT Student in an Organized Health Care Education/Training Program; ATTEND Student in an Organized Health Care Education/Training Program
DX: R56.9 Unspecified convulsions (principal); N17.0 Acute kidney failure with tubular necrosis; E87.20 Acidosis, unspecified; E83.41 Hypermagnesemia; K76.0 Fatty (change of) liver, not elsewhere classified; K70.0 Alcoholic fatty liver; E87.1 Hypo-osmolality and hyponatremia; K70.10 Alcoholic hepatitis without ascites; E87.6 Hypokalemia; M48.56XA Collapsed vertebra, not elsewhere classified, lumbar region, initial encounter for fracture; E83.42 Hypomagnesemia; E11.9 Type 2 diabetes mellitus without complications; D72.829 Elevated white blood cell count, unspecified; F10.139 Alcohol abuse with withdrawal, unspecified; Y90.0 Blood alcohol level of less than 20 mg/100 ml; Z87.891 Personal history of nicotine dependence; S00.512A Abrasion of oral cavity, initial encounter; X58.XXXA Exposure to other specified factors, initial encounter; Y92.019 Unspecified place in single-family (private) house as the place of occurrence of the external cause; M48.061 Spinal stenosis, lumbar region without neurogenic claudication; K57.90 Diverticulosis of intestine, part unspecified, without perforation or abscess without bleeding; E66.9 Obesity, unspecified; Z68.27 Body mass index [BMI] 27.0-27.9, adult; Z86.73 Personal history of transient ischemic attack (TIA), and cerebral infarction without residual deficits; R25.1 Tremor, unspecified
CPT/HCPCS: 36415; 70450; 71045; 83735; 84100; 85025; 93005; C1758; G0378; G0480; J1815; J2060; J3411; J3475; J3480; J3490; J7040

== ENCOUNTER 2023-03-11 03:06 | Emergency (ER) | payer BC ==
[~2023-03-11] VITALS: Ht 162.6 cm; Wt 78.9 kg
[2023-03-11] MEDS ORDERED: LORAZEPAM 2 MG/1 ML VIAL ONE (03:36)
[2023-03-11] MEDS ORDERED: levETIRAcetam 500 MG/5 ML VIAL IV ONE (03:37)
[2023-03-11] MEDS ORDERED: IV D5/ 0.9% NACL 1,000 ML IV ONE (04:45)
[2023-03-11] MEDS ORDERED: levETIRAcetam IV 500 MG in IV DEXTROSE 5% 100 ML IV ONE (04:45)
[2023-03-11] MEDS ORDERED: LORAZEPAM 2 MG/1 ML VIAL IV ONE (04:45)
[2023-03-11 04:58] LABS: MEAN CORPUSCULAR HEMOGLOBIN 36.3 uug (24.7-32.8); MEAN CORPUSCULAR VOLUME 106.9 fL (75.5-95.3); PLATELET COUNT (AUTO) 258 K/uL (179-408)
[2023-03-11 05:07] LABS: BILIRUBIN,TOTAL 0.3 mg/dL (0.2-1.0); CREATININE 0.7 mg/dL (0.6-1.3); POTASSIUM 3.5 mmol/L (3.5-5.1); TOTAL PROTEIN, SERUM 7.2 g/dL (6.4-8.2)
[2023-03-11] MEDS ORDERED: LEVE500T20 PO (05:10)
[2023-03-11 05:11] LABS: MAGNESIUM 0.8 mg/dL (1.8-2.4)
[2023-03-11] MEDS ORDERED: MAGNESIUM SULFATE/D5W 400 ML ONE (05:23)
[2023-03-11] MEDS ORDERED: MAGN400T26 PO (05:27)
[2023-03-11] MEDS: MAGNESIUM SULFATE/D5W 100 ML IV SCH ×4 (05:41→07:55)
[2023-03-11 05:45] LABS: THYROID STIMULATING HORMONE 1.138 mIU/mL (0.358-3.740)
[2023-03-11 09:17] LABS: PHOSPHOROUS 4.1 mg/dL (2.5-4.9)
[2023-03-11 15:42] VITALS: BP 129/79; O2SAT 96
[2023-04-26] MEDS ORDERED: LEVE500T9 PO (17:57)
== END 2023-03-11 15:42 | disposition left against medical advice (07) ==
LOC: ER 03:06 → TRANSITION 10:25 → UNDOADMIN 10:25 → UNDODISIN 15:32 → ER 15:42
DX: F10.229 Alcohol dependence with intoxication, unspecified (principal); Y90.8 Blood alcohol level of 240 mg/100 ml or more; E83.42 Hypomagnesemia; R09.02 Hypoxemia; G40.909 Epilepsy, unspecified, not intractable, without status epilepticus; D75.89 Other specified diseases of blood and blood-forming organs; R53.83 Other fatigue; R94.31 Abnormal electrocardiogram [ECG] [EKG]; Z86.73 Personal history of transient ischemic attack (TIA), and cerebral infarction without residual deficits; I51.7 Cardiomegaly; R73.9 Hyperglycemia, unspecified; Z53.29 Procedure and treatment not carried out because of patient's decision for other reasons; R91.8 Other nonspecific abnormal finding of lung field; E66.9 Obesity, unspecified; Z68.29 Body mass index [BMI] 29.0-29.9, adult; R74.01 Elevation of levels of liver transaminase levels; Z20.822 Contact with and (suspected) exposure to COVID-19
CPT/HCPCS: 36415; 70450; 71045; 82747; 83690; 83735; 84100; 84443; 84484; 85014; 85025; 93005; A4663; G0378; G0480; J1953; J2060; J3475

== ENCOUNTER 2023-03-24 11:25 | Emergency (ER) | payer BC ==
[~2023-03-24] VITALS: Ht 162.6 cm; Wt 81.6 kg
[~2023-03-24 11:25] MED LIST changes: +LEVE500T20 PO; +MAGN400T26 PO
[2023-03-24] MEDS ORDERED: THIAMINE HCL 200 MG/2 ML VIAL IV ONE (11:45)
[2023-03-24] MEDS ORDERED: IV NORMAL SALINE 500 ML BAG IV ONE (11:45)
[2023-03-24] MEDS ORDERED: levETIRAcetam IV 1,000 MG in IV DEXTROSE 5% 100 ML IV ONE (11:45)
--- NOTE | 2023-03-24 11:45 | NUR ---
Pt out of ER for CT scan.
[2023-03-24] MEDS ORDERED: THIAMINE HCL 200 MG/2 ML VIAL ONE (11:55)
[2023-03-24] MEDS ORDERED: levETIRAcetam 500 MG/5 ML VIAL IV ONE (11:55)
--- NOTE | 2023-03-24 12:04 | NUR ---
Pt back from CT, Seizure precaution implanted.
[2023-03-24 12:14] LABS: HEMATOCRIT 38.9 % (31.2-41.9); MEAN CORPUSCULAR HEMOGLOBIN 36.1 uug (24.7-32.8); MEAN CORPUSCULAR VOLUME 105.2 fL (75.5-95.3); PLATELET COUNT (AUTO) 320 K/uL (179-408)
[2023-03-24 12:37] LABS: CARBON DIOXIDE 31 mmol/L (21-32); CHLORIDE 100 mmol/L (98-107); CREATININE 0.8 mg/dL (0.6-1.3); GLUCOSE 171 mg/dL (74-106); POTASSIUM 4.1 mmol/L (3.5-5.1); UREA NITROGEN, BLOOD 13 mg/dL (7-18)
[2023-03-24 12:40] LABS: *BILIRUBIN,URIN NEGATIVE (NEGATIVE); *CLARITY,URINE CLEAR (CLEAR); *COLOR,URINE YELLOW (YELLOW); *KETONES,URINE NEGATIVE (NEGATIVE); *UROBILINOGEN,URINE 0.2 E.U./dl (NORMAL); LEUKOCYTE ESTERASE ,URINE 3+ (NEGATIVE); NITRITE, URINE NEGATIVE (NEGATIVE); PH,URINE 7.5 (5.0-8.0); UGLUCOSE NEGATIVE (NEGATIVE)
[2023-03-24 12:49] LABS: ALANINE AMINOTRANSFERASE 41 U/L (14-59); ALKALINE PHOSPHATASE 95 U/L (50-136); ASPARTATE AMINOTRANSFERASE 33 U/L (15-37); BILIRUBIN,TOTAL 0.3 mg/dL (0.2-1.0); TOTAL PROTEIN, SERUM 7.4 g/dL (6.4-8.2)
[2023-03-24 12:55] LABS: *AMPHETAMINE, URINE NEGATIVE (NEGATIVE); *CANNABINOID, URINE NEGATIVE (NEGATIVE); *COCCAINE, URINE NEGATIVE (NEGATIVE); *PHENCYCLIDINE SCREEN,URINE NEGATIVE (NEGATIVE)
[2023-03-24 12:55] LABS: ACETAMINOPHEN < 2.0 ug/mL (10-30)
[2023-03-24 13:11] LABS: *BLOOD, URINE TRACE (NEGATIVE)
--- NOTE | 2023-03-24 13:30 | NUR ---
Lunch tray provided, pt ate w/ grea appetite, no c/o pain.
[2023-03-24 13:52] LABS: BACTERIA,URINE MANY /HPF (NONE SEEN); RBC,URINE 0-3 /HPF (0-3)
[2023-03-24 13:53] LABS: SQUAMOUS EPITHELIAL CELL,UR FEW /HPF (NONE SEEN)
--- NOTE | 2023-03-24 14:30 | NUR ---
Patient discharged to home in stable condition. Written and verbal after care instructions given. Patient verbalizes understanding of instructions. Stressed follow up or return to ER for worsening s/s. Pt walked out of ER w/ steady gait accompained by .
[2023-03-24 16:15] VITALS: BP 122/60
== END 2023-03-24 14:30 | disposition home or self-care (01) ==
LOC: ER 11:25
DX: F10.129 Alcohol abuse with intoxication, unspecified (principal); Z79.899 Other long term (current) drug therapy; Y90.8 Blood alcohol level of 240 mg/100 ml or more
CPT/HCPCS: 80053; 81001; 85025; 36415; 70450; 99285; 96365; 96375; 80299; 80320; 80307; J1953 ×2; J3411; J7040; A4663; G0480

== ENCOUNTER 2023-03-31 16:01 | Emergency (ER) | payer BC ==
[~2023-03-31] VITALS: Ht 162.6 cm; Wt 81.6 kg
--- NOTE | 2023-03-31 16:11 | NUR ---
PT IS IN ROOM #3. DR CONN EVALUATED THE PT.
[2023-03-31] MEDS ORDERED: IV NORMAL SALINE 1000 ML BAG IV ONE (16:15)
[2023-03-31 16:53] LABS: CREATININE 0.6 mg/dL (0.6-1.3); POTASSIUM 3.5 mmol/L (3.5-5.1)
[2023-03-31 17:04] LABS: BILIRUBIN,TOTAL 0.3 mg/dL (0.2-1.0); TOTAL PROTEIN, SERUM 7.1 g/dL (6.4-8.2)
[2023-03-31 17:20] LABS: MAGNESIUM 1.4 mg/dL (1.8-2.4); PHOSPHOROUS 4.5 mg/dL (2.5-4.9)
[2023-03-31 17:21] LABS: ACETAMINOPHEN < 2.0 ug/mL (10-30)
[2023-03-31 17:33] LABS: HEMATOCRIT 31.6 % (31.2-41.9); MEAN CORPUSCULAR VOLUME 105.9 fL (75.5-95.3); PLATELET COUNT (AUTO) 227 K/uL (179-408)
[2023-03-31] MEDS ORDERED: MAGNESIUM SULFATE/D5W 100 ML IV SCH (17:45)
[2023-03-31] MEDS ORDERED: MAGNESIUM SULFATE/D5W 100 ML ONE ×3 (18:08→19:25)
[2023-03-31] MEDS ORDERED: THIAMINE HCL 100 MG TABLET PO ONE (18:30)
[2023-03-31] MEDS ORDERED: THIAMINE HCL 100 MG TABLET ONE (19:03)
[2023-03-31] MEDS: MAGNESIUM SULFATE/D5W 100 ML IV SCH ×2 (19:05→19:30)
--- NOTE | 2023-03-31 19:33 | NUR ---
Received patient Aox4, following commands, moving in bed.
[2023-03-31] MEDS ORDERED: CYANOCOBALAMIN 1000 MCG/ML VIAL ONE (20:27)
[2023-03-31] MEDS ORDERED: CYANOCOBALAMIN 1000 MCG/ML VIAL IM ONE (20:30)
[2023-03-31] MEDS ORDERED: MECO10006 IM (20:31)
[2023-03-31] MEDS ORDERED: SYRI-29 MC (20:31)
[2023-03-31 20:55] LABS: IRON, SERUM 75 ug/dL (50-175)
--- NOTE | 2023-03-31 21:31 | NUR ---
Patient's at bedside.
--- NOTE | 2023-03-31 21:40 | NUR ---
Patient requesting food, given 2 jellos, water and sandwhich. Patient ate 100% of food.
--- NOTE | 2023-03-31 22:00 | NUR ---
Patient aox4, ambulating in the room indepedently. Steady gait. No signs of acute distress noted.
--- NOTE | 2023-03-31 22:17 | NUR ---
Patient discharged to home in stable condition. Written and verbal after care instructions given. Patient verbalizes understanding of instructions. Stressed follow up or return to ER for worsening s/s. Given printed copies of medication prescriptions.
[2023-03-31 22:19] VITALS: BP 115/65
== END 2023-03-31 22:20 | disposition home or self-care (01) ==
LOC: ER 16:01
DX: F10.20 Alcohol dependence, uncomplicated (principal); E83.42 Hypomagnesemia; E53.8 Deficiency of other specified B group vitamins; R51.9 Headache, unspecified; Z79.899 Other long term (current) drug therapy; Y90.8 Blood alcohol level of 240 mg/100 ml or more
CPT/HCPCS: 80053; 82607; 83550; 83735; 84100; 85025; 36415; 70450; 99285; 96361; 96365; 96366; 96372; 80299; 80320; 80307; 82747; 85014; J3420; J3475 ×3; J7040; A4663; G0480

== ENCOUNTER 2023-04-03 15:47 | Emergency (ER) | payer BC ==
[~2023-04-03] VITALS: Ht 160 cm; Wt 74.8 kg
[~2023-04-03 15:47] MED LIST changes: +MECO10006 IM; +SYRI-29 MC
--- NOTE | 2023-04-03 16:03 | NUR ---
PT WAS EVALUATED BY DR JAUREGUI.
--- NOTE | 2023-04-03 16:21 | NUR ---
PT DECIDED TO LEAVE [facility] ER AMA. DR JAUREGUI EXPLAINES ALL RISKS OF LEAVING HOSPITAL AMA TO THE PT. PT VERBALIZED FULL UNDERSTANDING. PT's GAIT IS STABLE. PT DENIES PAIN, NO SOB, NO N/V. PT REFUSED TO SIGN AMA FORM.
[2023-04-03 16:25] VITALS: BP 132/81
== END 2023-04-03 16:41 | disposition left against medical advice (07) ==
LOC: ER 15:47
DX: F41.9 Anxiety disorder, unspecified (principal); F10.129 Alcohol abuse with intoxication, unspecified; Z79.899 Other long term (current) drug therapy; Y90.9 Presence of alcohol in blood, level not specified
CPT/HCPCS: A4663

== ENCOUNTER 2023-04-05 15:03 | Emergency (ER) | payer BC ==
[~2023-04-05] VITALS: Ht 160 cm; Wt 79.4 kg
--- NOTE | 2023-04-05 15:19 | NUR ---
BIB ambulance from home with c/o stress and anxiety from not working and no money. Denies any pain or discomfort at this time. No s/s of any distress noted, states she has been drinking x 20 years. Informed of plan of care, awaiting provider exam, will continue to monitor.
--- NOTE | 2023-04-05 15:41 | NUR ---
#20g established in left wrist, unable to draw blood at this time. Lab at bedside.
--- NOTE | 2023-04-05 16:03 | NUR ---
Assisted lab with blood collection at this time.
[2023-04-05 16:05] LABS: HEMATOCRIT 39.1 % (31.2-41.9); MEAN CORPUSCULAR HEMOGLOBIN 35.7 uug (24.7-32.8); MEAN CORPUSCULAR VOLUME 104.3 fL (75.5-95.3); PLATELET COUNT (AUTO) 239 K/uL (179-408)
[2023-04-05 16:25] LABS: ALANINE AMINOTRANSFERASE 31 U/L (14-59); ALKALINE PHOSPHATASE 64 U/L (50-136); ASPARTATE AMINOTRANSFERASE 40 U/L (15-37); BILIRUBIN,DIRECT 0.2 mg/dL (0.0-0.2); BILIRUBIN,TOTAL 0.4 mg/dL (0.2-1.0); CARBON DIOXIDE 29 mmol/L (21-32); CHLORIDE 106 mmol/L (98-107); CREATININE 0.6 mg/dL (0.6-1.3); GLUCOSE 83 mg/dL (74-106); TOTAL PROTEIN, SERUM 6.9 g/dL (6.4-8.2); UREA NITROGEN, BLOOD 12 mg/dL (7-18)
[2023-04-05 16:29] LABS: ACETAMINOPHEN < 2.0 ug/mL (10-30)
--- NOTE | 2023-04-05 16:37 | NUR ---
Patient pulled out HL, and walked out without signing AMA papers, will inform ER provider.
== END 2023-04-05 16:37 | disposition left against medical advice (07) ==
LOC: ER 15:03
DX: F10.129 Alcohol abuse with intoxication, unspecified (principal); Z79.899 Other long term (current) drug therapy; Y90.8 Blood alcohol level of 240 mg/100 ml or more
CPT/HCPCS: 36415; 85025; A4663; G0480

== ENCOUNTER 2023-06-04 18:02 | Inpatient (IN) | payer BC ==
[~2023-06-04] VITALS: Ht 160 cm; Wt 77.1 kg
[~2023-06-04 18:02] MED LIST changes: +LEVE500T9 PO
[2023-06-04] MEDS ORDERED: levETIRAcetam IV 500 MG in IV DEXTROSE 5% 100 ML IV ONE ×2 (18:45→20:30)
[2023-06-04] MEDS ORDERED: LORAZEPAM 2 MG/1 ML VIAL IV ONE (18:45)
[2023-06-04 19:01] LABS: BASOPHILS # (AUTO) 0.2 K/UL (0.0-0.2); BASOPHILS % (AUTO) 1.8 % (0.0-2.0); EOSINOPHILS % (AUTO) 0.4 % (0.0-7.0); HEMATOCRIT 44.1 % (31.2-41.9); HEMOGLOBIN 14.9 g/dL (10.9-14.3); LYMPHOCYTES # (AUTO) 1.1 K/uL (0.8-4.8); LYMPHOCYTES % (AUTO) 11.8 % (20.5-51.5); MEAN CORPUSCULAR HEMOGLOBIN 34.8 uug (24.7-32.8); MEAN CORPUSCULAR HGB CONC 34 g/dL (32.3-35.6); MEAN CORPUSCULAR VOLUME 102.9 fL (75.5-95.3); MONOCYTES # (AUTO) 0.7 K/uL (0.1-1.30); MONOCYTES % (AUTO) 8.3 % (0.0-11.0); NEUTROPHILS % (AUTO) 77.7 % (38.5-71.5); PLATELET COUNT (AUTO) 125 K/uL (179-408); RED BLOOD CELL COUNT(AUTO) 4.29 MIL/uL (3.63-4.92); RED CELL DISTRIBUTION WIDTH 15.3 % (12.3-17.7)
[2023-06-04] MEDS ORDERED: levETIRAcetam 500 MG/5 ML VIAL IV ONE ×2 (19:06→20:21)
[2023-06-04 19:07] LABS: CREATININE 1.6 mg/dL (0.6-1.3); SODIUM SERUM 135 mmol/L (136-145)
[2023-06-04] MEDS ORDERED: LORAZEPAM 2 MG/1 ML VIAL ONE ×2 (19:08)
[2023-06-04 19:14] LABS: DIFFERENTIAL COMMENT 1
[2023-06-04 19:18] LABS: ETHANOL < 3 MG/DL (0-10)
[2023-06-04 19:19] LABS: ALANINE AMINOTRANSFERASE 45 U/L (14-59); ALBUMIN 4.3 g/dL (3.4-5.0); ALKALINE PHOSPHATASE 69 U/L (50-136); ASPARTATE AMINOTRANSFERASE 66 U/L (15-37); BILIRUBIN,DIRECT 0.6 mg/dL (0.0-0.2); BILIRUBIN,TOTAL 2.2 mg/dL (0.2-1.0); CALCIUM 8.5 mg/dL (8.5-10.1); CARBON DIOXIDE 26 mmol/L (21-32); CHLORIDE 91 mmol/L (98-107); GLUCOSE 228 mg/dL (74-106); POTASSIUM 3.1 mmol/L (3.5-5.1); TOTAL PROTEIN, SERUM 8.3 g/dL (6.4-8.2); UREA NITROGEN, BLOOD 25 mg/dL (7-18)
[2023-06-04] MEDS ORDERED: MAGNESIUM SULFATE/D5W 100 ML ONE (20:03)
[2023-06-04] MEDS ORDERED: MAGNESIUM SULFATE/D5W 300 ML ONE (20:04)
[2023-06-04] MEDS: MAGNESIUM SULFATE/D5W 100 ML IV SCH ×4 (20:19→23:00)
[2023-06-04] MEDS ORDERED: REMEDY ESSENTIAL ZINC PASTE 113 GM TP PRN (22:30)
[2023-06-04] MEDS ORDERED: MAGNESIUM HYDROXIDE 30 ML LIQUID UDC PO PRN (22:30)
[2023-06-04] MEDS ORDERED: ACETAMINOPHEN 325 MG TABLET PO PRN (22:30)
[2023-06-04] MEDS ORDERED: POTASSIUM CHLORIDE 20 MEQ TAB.PRT.SR PO ONE (22:30)
[2023-06-04] MEDS ORDERED: ONDANSETRON 4 MG/2 ML VIAL IV PRN (22:30)
[2023-06-04] MEDS ORDERED: IV NS 1000 ML 1,000 ML IV SCH (22:30)
[2023-06-04] MEDS ORDERED: LORAZEPAM 2 MG/1 ML VIAL IV PRN (22:30)
[2023-06-05 00:58] VITALS: BP 125/78; TEMP 98.3; O2SAT 98
[2023-06-05 04:22] VITALS: BP 128/69; TEMP 98.4; O2SAT 97
[2023-06-05 07:21] LABS: BASOPHILS % (AUTO) 0.4 % (0.0-2.0); EOSINOPHILS # (AUTO) 0.1 K/uL (0.0-0.7); EOSINOPHILS % (AUTO) 1.3 % (0.0-7.0); HEMATOCRIT 43.8 % (31.2-41.9); LYMPHOCYTES # (AUTO) 1.5 K/uL (0.8-4.8); LYMPHOCYTES % (AUTO) 19.2 % (20.5-51.5); MEAN CORPUSCULAR HEMOGLOBIN 35.4 uug (24.7-32.8); MEAN CORPUSCULAR HGB CONC 34 g/dL (32.3-35.6); MEAN CORPUSCULAR VOLUME 103.3 fL (75.5-95.3); MONOCYTES # (AUTO) 0.8 K/uL (0.1-1.30); MONOCYTES % (AUTO) 10.1 % (0.0-11.0); NEUTROPHILS # (AUTO) 5.5 K/uL (1.8-8.9); PLATELET COUNT (AUTO) 117 K/uL (179-408); RED BLOOD CELL COUNT(AUTO) 4.24 MIL/uL (3.63-4.92); RED CELL DISTRIBUTION WIDTH 15.4 % (12.3-17.7); WHITE BLOOD COUNT (AUTO) 7.9 K/uL (3.8-11.8)
[2023-06-05 07:24] LABS: CALCIUM 8.4 mg/dL (8.5-10.1); CREATININE 1.1 mg/dL (0.6-1.3); POTASSIUM 3.3 mmol/L (3.5-5.1)
[2023-06-05 07:26] LABS: DIFFERENTIAL COMMENT 1
[2023-06-05 07:56] LABS: MAGNESIUM 2.2 mg/dL (1.8-2.4); PHOSPHOROUS 3.9 mg/dL (2.5-4.9)
[2023-06-05 08:29] LABS: THYROID STIMULATING HORMONE 2.039 mIU/mL (0.358-3.740)
[2023-06-05] MEDS ORDERED: ASPIRIN 81 MG TAB.CHEW PO SCH (09:00)
[2023-06-05] MEDS ORDERED: FOLIC ACID/VITAMIN B COMP W-C TABLET PO SCH (09:00)
[2023-06-05] MEDS ORDERED: levETIRAcetam IV 500 MG in IV DEXTROSE 5% 100 ML IV SCH (09:00)
[2023-06-05] MEDS ORDERED: PANTOPRAZOLE SODIUM 40 MG VIAL IV SCH (09:00)
[2023-06-05] MEDS ORDERED: MAGNESIUM OXIDE 400 MG TABLET PO SCH (09:00)
[2023-06-05] MEDS ORDERED: THIAMINE HCL 100 MG TABLET PO SCH (09:00)
[2023-06-05] MEDS ORDERED: POTASSIUM CHLORIDE 20 MEQ TAB.PRT.SR PO ONE (12:00)
[2023-06-05] MEDS ORDERED: SIMVASTATIN 10 MG TABLET PO SCH (21:00)
[2023-06-05] MEDS ORDERED: LORAZEPAM 2 MG/1 ML VIAL IV ONE (21:45)
[2023-06-05] MEDS ORDERED: IV NORMAL SALINE 500 ML BAG IV ONE (21:45)
[2023-06-05] MEDS ORDERED: levETIRAcetam IV 500 MG in IV DEXTROSE 5% 100 ML IV ONE (21:45)
[2023-06-05] MEDS ORDERED: MAGNESIUM SULFATE/D5W 100 ML IV SCH (21:45)
[2023-06-06 07:29] LABS: CALCIUM 8.8 mg/dL (8.5-10.1); CREATININE 0.6 mg/dL (0.6-1.3); POTASSIUM 3.5 mmol/L (3.5-5.1)
== END 2023-06-05 10:30 | disposition left against medical advice (07) | DRG 53 ==
LOC: ER 18:06 → TELE3 06-05 00:15
PROVIDERS: ADMIT Nurse Practitioner Acute Care; ATTEND Internal Medicine
DX: G40.509 Epileptic seizures related to external causes, not intractable, without status epilepticus (principal); N17.0 Acute kidney failure with tubular necrosis; D69.6 Thrombocytopenia, unspecified; E87.1 Hypo-osmolality and hyponatremia; B99.9 Unspecified infectious disease; F10.239 Alcohol dependence with withdrawal, unspecified; K70.10 Alcoholic hepatitis without ascites; D75.89 Other specified diseases of blood and blood-forming organs; E66.9 Obesity, unspecified; E83.42 Hypomagnesemia; E87.6 Hypokalemia; Z91.199 Patient's noncompliance with other medical treatment and regimen due to unspecified reason; E78.5 Hyperlipidemia, unspecified; Z91.148 Patient's other noncompliance with medication regimen for other reason; R73.03 Prediabetes; Z68.30 Body mass index [BMI] 30.0-30.9, adult; R74.01 Elevation of levels of liver transaminase levels; Z79.899 Other long term (current) drug therapy; I51.7 Cardiomegaly; Z86.73 Personal history of transient ischemic attack (TIA), and cerebral infarction without residual deficits; R00.0 Tachycardia, unspecified; R94.31 Abnormal electrocardiogram [ECG] [EKG]
CPT/HCPCS: 36415; 70450; 71045; 83735; 84100; 84443; 85025; 93005; C9113; G0378; G0480; J1953; J2060; J3475; J7040

== ENCOUNTER 2023-06-05 21:19 | Emergency (ER) | payer BC ==
[~2023-06-05] VITALS: Ht 160 cm; Wt 77.1 kg
[2023-06-05] MEDS ORDERED: THIAMINE HCL 200 MG/2 ML VIAL IV ONE (21:45)
[2023-06-05 21:52] LABS: BASOPHILS # (AUTO) 0.2 K/UL (0.0-0.2); BASOPHILS % (AUTO) 2.6 % (0.0-2.0); DIFFERENTIAL COMMENT 1; EOSINOPHILS # (AUTO) 0.2 K/uL (0.0-0.7); EOSINOPHILS % (AUTO) 1.9 % (0.0-7.0); HEMATOCRIT 39.4 % (31.2-41.9); HEMOGLOBIN 13.2 g/dL (10.9-14.3); LYMPHOCYTES # (AUTO) 1.7 K/uL (0.8-4.8); LYMPHOCYTES % (AUTO) 18.8 % (20.5-51.5); MEAN CORPUSCULAR HEMOGLOBIN 34.6 uug (24.7-32.8); MEAN CORPUSCULAR HGB CONC 34 g/dL (32.3-35.6); MEAN CORPUSCULAR VOLUME 103.3 fL (75.5-95.3); MONOCYTES % (AUTO) 11.4 % (0.0-11.0); NEUTROPHILS # (AUTO) 5.9 K/uL (1.8-8.9); NEUTROPHILS % (AUTO) 65.3 % (38.5-71.5); PLATELET COUNT (AUTO) 128 K/uL (179-408); RED BLOOD CELL COUNT(AUTO) 3.82 MIL/uL (3.63-4.92); RED CELL DISTRIBUTION WIDTH 15.1 % (12.3-17.7)
[2023-06-05 22:00] LABS: CALCIUM 8.2 mg/dL (8.5-10.1); CREATININE 1.9 mg/dL (0.6-1.3); POTASSIUM 2.9 mmol/L (3.5-5.1)
[2023-06-05] MEDS ORDERED: THIAMINE HCL 200 MG/2 ML VIAL ONE (22:01)
[2023-06-05 22:06] LABS: ALBUMIN 3.7 g/dL (3.4-5.0); BILIRUBIN,TOTAL 0.9 mg/dL (0.2-1.0); MAGNESIUM 1.9 mg/dL (1.8-2.4); TOTAL PROTEIN, SERUM 7.3 g/dL (6.4-8.2)
[2023-06-05] MEDS ORDERED: POTASSIUM CHLORIDE 20 MEQ TAB.PRT.SR ONE (22:07)
[2023-06-05] MEDS ORDERED: POTASSIUM CHLORIDE 20 MEQ TAB.PRT.SR PO ONE (22:15)
[2023-06-06] MEDS ORDERED: IV NS 1000 ML 1,000 ML IV ONE (01:00)
[2023-06-06 08:10] VITALS: BP 101/71; O2SAT 96
== END 2023-06-06 08:12 | disposition left against medical advice (07) ==
LOC: ER 21:29
DX: F10.129 Alcohol abuse with intoxication, unspecified (principal); E87.6 Hypokalemia; N17.9 Acute kidney failure, unspecified; R94.01 Abnormal electroencephalogram [EEG]; Z79.899 Other long term (current) drug therapy; Z20.822 Contact with and (suspected) exposure to COVID-19; Y90.8 Blood alcohol level of 240 mg/100 ml or more
CPT/HCPCS: 80053; 83690; 83735; 85025; 36415; 99285; 96374; 80320; 87426; 96361; J3411; J7040 ×2; A4663; G0480

== ENCOUNTER 2023-06-13 19:28 | Emergency (ER) | payer BC | END 2023-06-13 20:59 | disposition left against medical advice (07) | LOC: ER 19:53 | DX: Z53.21 Procedure and treatment not carried out due to patient leaving prior to being seen by health care provider (principal) ==

== ENCOUNTER 2024-08-08 21:30 | Emergency (ER) | payer BC, MEDICAID ==
[~2024-08-08] VITALS: Ht 160 cm; Wt 74.8 kg
[~2024-08-08 21:30] MED LIST changes: -CHLO25CA22 PO; -LEVE500T20 PO; -LEVE500T9 PO; -MAGN400T26 PO; -MECO10006 IM; +MULT-225 PO; -SYRI-29 MC
[2024-08-08 21:50] LABS: BASOPHILS # (AUTO) 0.2 K/UL (0.0-0.2); BASOPHILS % (AUTO) 1.2 % (0.0-2.0); HEMATOCRIT 43.3 % (31.2-41.9); HEMOGLOBIN 15.1 g/dL (10.9-14.3); LYMPHOCYTES # (AUTO) 2.3 K/uL (0.8-4.8); LYMPHOCYTES % (AUTO) 15.1 % (20.5-51.5); MEAN CORPUSCULAR HEMOGLOBIN 36.5 uug (24.7-32.8); MEAN CORPUSCULAR HGB CONC 35 g/dL (32.3-35.6); MONOCYTES # (AUTO) 1.7 K/uL (0.1-1.30); MONOCYTES % (AUTO) 11.3 % (0.0-11.0); NEUTROPHILS # (AUTO) 11.1 K/uL (1.8-8.9); NEUTROPHILS % (AUTO) 72.4 % (38.5-71.5); PLATELET COUNT (AUTO) 235 K/uL (179-408); RED BLOOD CELL COUNT(AUTO) 4.13 MIL/uL (3.63-4.92); RED CELL DISTRIBUTION WIDTH 15.1 % (12.3-17.7); WHITE BLOOD COUNT (AUTO) 15.3 K/uL (3.8-11.8)
[2024-08-08] MEDS ORDERED: ONDANSETRON 4 MG/2 ML VIAL ONE (21:50)
[2024-08-08] MEDS ORDERED: LORAZEPAM 2 MG/1 ML VIAL ONE (21:51)
[2024-08-08] MEDS: LORAZEPAM 2 MG/1 ML VIAL IV ONE (21:56)
[2024-08-08] MEDS: ONDANSETRON 4 MG/2 ML VIAL IV ONE (21:56)
[2024-08-08 22:07] LABS: DIFFERENTIAL COMMENT 1
[2024-08-08 22:19] LABS: ETHANOL < 3 MG/DL (0-10)
[2024-08-08 22:34] LABS: ALANINE AMINOTRANSFERASE 46 U/L (14-59); ALBUMIN 4.2 g/dL (3.4-5.0); ALKALINE PHOSPHATASE 74 U/L (50-136); ASPARTATE AMINOTRANSFERASE 93 U/L (15-37); BILIRUBIN,DIRECT 0.8 mg/dL (0.0-0.2); BILIRUBIN,TOTAL 2.5 mg/dL (0.2-1.0); CALCIUM 8.3 mg/dL (8.5-10.1); CARBON DIOXIDE 28 mmol/L (21-32); CHLORIDE 89 mmol/L (98-107); CREATININE 1.8 mg/dL (0.6-1.3); GLUCOSE 211 mg/dL (74-106); SODIUM SERUM 135 mmol/L (136-145); TOTAL PROTEIN, SERUM 8.3 g/dL (6.4-8.2); UREA NITROGEN, BLOOD 35 mg/dL (7-18)
[2024-08-08 22:40] LABS: THYROID STIMULATING HORMONE 1.952 mIU/mL (0.358-3.740)
[2024-08-08 22:58] LABS: POTASSIUM 2.7 mmol/L (3.5-5.1)
[2024-08-08 23:38] LABS: ACETAMINOPHEN < 10.0 ug/mL (10-30)
[2024-08-08] MEDS ORDERED: POTASSIUM CHLORIDE 10 MEQ TAB.PRT.SR ONE (23:43)
[2024-08-08] MEDS ORDERED: IV 0.9% SODIUM CHLORID+ 20 KCL 1,000 ML ONE (23:46)
[2024-08-08] MEDS: IV 0.9% SODIUM CHLORID+ 20 KCL 1,000 ML IV ONE (23:57)
[2024-08-08] MEDS: POTASSIUM CHLORIDE 20 MEQ TAB.PRT.SR PO ONE (23:57)
[2024-08-09] MEDS ORDERED: PHENOBARBITAL SODIUM 130 MG/1 ML DISP.SYRIN ONE (00:48)
[2024-08-09] MEDS: PHENOBARBITAL SODIUM 130 MG/1 ML DISP.SYRIN IV ONE (01:06)
[2024-08-09] MEDS ORDERED: MAGNESIUM SULFATE/D5W 100 ML ONE (01:31)
[2024-08-09] MEDS: MAGNESIUM SULFATE/D5W 100 ML IV SCH (01:33)
[2024-08-09] MEDS: IV NORMAL SALINE 1000 ML BAG IV ONE ×2 (02:30→06:20)
[2024-08-09] MEDS ORDERED: MAGNESIUM SULFATE/D5W 300 ML ONE (02:37)
[2024-08-09 05:47] LABS: CALCIUM 7.4 mg/dL (8.5-10.1); CREATININE 1.6 mg/dL (0.6-1.3); POTASSIUM 3.6 mmol/L (3.5-5.1)
[2024-08-09] MEDS ORDERED: THIAMINE HCL 100 MG TABLET PO ONE (07:15)
[2024-08-09] MEDS ORDERED: POTASSIUM BICARBONATE/CIT AC 25 MEQ TABLET.EFF PO ONE (07:15)
[2024-08-09] MEDS ORDERED: POTA25TA7 PO (07:40)
[2024-08-09] MEDS ORDERED: CHLO25CA22 PO (07:40)
[2024-08-09] MEDS ORDERED: CHLORDIAZEPOXIDE HCL 25 MG CAPSULE PO ONE (07:45)
[2024-08-09] MEDS ORDERED: CHLORDIAZEPOXIDE HCL 25 MG CAPSULE ONE (07:52)
[2024-08-09] MEDS ORDERED: POTASSIUM BICARBONATE/CIT AC 25 MEQ TABLET.EFF ONE (07:52)
[2024-08-09] MEDS ORDERED: THIAMINE HCL 100 MG TABLET ONE (07:52)
[2024-08-09 09:08] VITALS: BP 165/98; TEMP 97; O2SAT 97
== END 2024-08-09 08:30 | disposition home or self-care (01) ==
LOC: ER 21:31
DX: S01.412A Laceration without foreign body of left cheek and temporomandibular area, initial encounter (principal); F10.239 Alcohol dependence with withdrawal, unspecified; E87.1 Hypo-osmolality and hyponatremia; E86.0 Dehydration; E87.6 Hypokalemia; E83.42 Hypomagnesemia; R94.4 Abnormal results of kidney function studies; R79.89 Other specified abnormal findings of blood chemistry; Z20.822 Contact with and (suspected) exposure to COVID-19; R00.0 Tachycardia, unspecified; Z79.899 Other long term (current) drug therapy; X58.XXXA Exposure to other specified factors, initial encounter; Y93.89 Activity, other specified; Y92.89 Other specified places as the place of occurrence of the external cause; Y99.8 Other external cause status
CPT/HCPCS: 80076; 80048 ×2; 83735 ×2; 84443; 85025; 87426; 71045; 70450; 93005; 99285; 96365; 96366 ×2; 96375 ×2; 80299; 80320; 80179; 36415; 96361; 96367; J2060; J2405; J3475 ×2; J2560; A4606; A4663; G0480

== ENCOUNTER 2024-10-30 17:47 | Emergency (ER) | payer BC, MEDICAID ==
[~2024-10-30] VITALS: Ht 162.6 cm; Wt 58.5 kg
[~2024-10-30 17:47] MED LIST changes: +CHLO25CA22 PO; +POTA25TA7 PO
[2024-10-30] MEDS ORDERED: KETOROLAC TROMETHAMINE 30 MG INJ ONE (19:14)
[2024-10-30] MEDS ORDERED: ACETAMINOPHEN 500 MG TABLET ONE (19:14)
[2024-10-30] MEDS: ACETAMINOPHEN 500 MG TABLET PO ONE (19:23)
[2024-10-30] MEDS: KETOROLAC TROMETHAMINE 30 MG INJ IM ONE (19:23)
[2024-10-30] MEDS ORDERED: IBUP-1955 PO (20:19)
[2024-10-30] MEDS ORDERED: HYDR-3980 PO (20:19)
[2024-10-30 20:41] VITALS: BP 121/70; TEMP 97.8; O2SAT 100
== END 2024-10-30 21:21 | disposition home or self-care (01) ==
LOC: ER 17:47
DX: S70.02XA Contusion of left hip, initial encounter (principal); Z88.7 Allergy status to serum and vaccine; W18.30XA Fall on same level, unspecified, initial encounter; Y93.89 Activity, other specified; Y92.89 Other specified places as the place of occurrence of the external cause; Y99.8 Other external cause status
CPT/HCPCS: 99283; 73502; 96372; 73501; J1885; A4606; A4663; A9150

== ENCOUNTER 2024-12-21 13:59 | Emergency (ER) | payer BC ==
[~2024-12-21] VITALS: Ht 162.6 cm; Wt 74.8 kg
[~2024-12-21 13:59] MED LIST changes: +HYDR-3980 PO; +IBUP-1955 PO
[2024-12-21] MEDS: MAGNESIUM SULFATE/D5W 100 ML IV SCH ×2 (15:30→18:15)
[2024-12-21 15:44] LABS: BASOPHILS # (AUTO) 0.2 K/UL (0.0-0.2); BASOPHILS % (AUTO) 2.3 % (0.0-2.0); EOSINOPHILS # (AUTO) 0.2 K/uL (0.0-0.7); HEMATOCRIT 39.2 % (31.2-41.9); HEMOGLOBIN 13.2 g/dL (10.9-14.3); LYMPHOCYTES # (AUTO) 2.4 K/uL (0.8-4.8); MEAN CORPUSCULAR HEMOGLOBIN 32.8 uug (24.7-32.8); MEAN CORPUSCULAR HGB CONC 34 g/dL (32.3-35.6); MEAN CORPUSCULAR VOLUME 97.3 fL (75.5-95.3); MONOCYTES # (AUTO) 0.6 K/uL (0.1-1.30); MONOCYTES % (AUTO) 7.9 % (0.0-11.0); NEUTROPHILS # (AUTO) 3.6 K/uL (1.8-8.9); NEUTROPHILS % (AUTO) 51.8 % (38.5-71.5); PLATELET COUNT (AUTO) 370 K/uL (179-408); RED BLOOD CELL COUNT(AUTO) 4.03 MIL/uL (3.63-4.92); RED CELL DISTRIBUTION WIDTH 14.8 % (12.3-17.7)
[2024-12-21 15:45] LABS: *BILIRUBIN,URIN NEGATIVE (NEGATIVE); *BLOOD, URINE 1+ (NEGATIVE); *CLARITY,URINE CLOUDY (CLEAR); *COLOR,URINE YELLOW (YELLOW); *KETONES,URINE NEGATIVE (NEGATIVE); *PROTEIN,URINE NEGATIVE (NEGATIVE); *UROBILINOGEN,URINE 0.2 E.U./dl (NORMAL); LEUKOCYTE ESTERASE ,URINE 3+ (NEGATIVE); NITRITE, URINE NEGATIVE (NEGATIVE); UGLUCOSE NEGATIVE (NEGATIVE)
[2024-12-21 15:52] LABS: CALCIUM 8.7 mg/dL (8.5-10.1); CARBON DIOXIDE 29 mmol/L (21-32); CHLORIDE 109 mmol/L (98-107); CREATININE 0.6 mg/dL (0.6-1.3); DIFFERENTIAL COMMENT 1; GLUCOSE 109 mg/dL (74-106); SODIUM SERUM 145 mmol/L (136-145); UREA NITROGEN, BLOOD 8 mg/dL (7-18)
[2024-12-21 15:53] LABS: POTASSIUM 3.8 mmol/L (3.5-5.1)
[2024-12-21] MEDS: THIAMINE HCL 100 MG TABLET PO ONE (15:54)
[2024-12-21] MEDS ORDERED: THIAMINE HCL 100 MG TABLET ONE (15:54)
[2024-12-21 15:56] LABS: ETHANOL 234 MG/DL (0-10)
[2024-12-21 15:59] LABS: *AMPHETAMINE, URINE NEGATIVE (NEGATIVE); *BARBITURATE, URINE NEGATIVE (NEGATIVE); *BENZODIAZEPINE, URINE NEGATIVE (NEGATIVE); *CANNABINOID, URINE NEGATIVE (NEGATIVE); *COCCAINE, URINE NEGATIVE (NEGATIVE); *OPIATE, URINE NEGATIVE (NEGATIVE); *PHENCYCLIDINE SCREEN,URINE NEGATIVE (NEGATIVE); FENTANYL, URINE NEGATIVE (NEGATIVE)
[2024-12-21] MEDS: IV NORMAL SALINE 1000 ML BAG IV ONE (16:07)
[2024-12-21 16:09] LABS: BACTERIA,URINE MANY /HPF (NONE SEEN); SQUAMOUS EPITHELIAL CELL,UR MANY /HPF (NONE SEEN); WBC,URINE TNTC /HPF (0-3)
[2024-12-21 16:11] LABS: ALANINE AMINOTRANSFERASE 17 U/L (14-59); ALKALINE PHOSPHATASE 61 U/L (50-136); ASPARTATE AMINOTRANSFERASE 30 U/L (15-37); BILIRUBIN,DIRECT 0.1 mg/dL (0.0-0.2); BILIRUBIN,TOTAL 0.3 mg/dL (0.2-1.0); TOTAL PROTEIN, SERUM 6.5 g/dL (6.4-8.2)
[2024-12-21 16:18] LABS: ACETAMINOPHEN < 2.0 ug/mL (10-30)
[2024-12-21] MEDS ORDERED: MAGNESIUM SULFATE/D5W 200 ML ONE (17:15)
[2024-12-21] MEDS ORDERED: MAGN64TA9 PO (18:39)
[2024-12-21] MEDS ORDERED: CEFD300C3 PO (18:39)
[2024-12-21] MEDS: CEFTRIAXONE 1 G in IV DEXTROSE 5% 50 ML IV ONE (19:05)
[2024-12-21 19:10] VITALS: BP 136/75; O2SAT 97
== END 2024-12-21 19:13 | disposition home or self-care (01) ==
LOC: ER 13:59
DX: F10.129 Alcohol abuse with intoxication, unspecified (principal); E83.42 Hypomagnesemia; N39.0 Urinary tract infection, site not specified; Z88.7 Allergy status to serum and vaccine; Y90.9 Presence of alcohol in blood, level not specified
CPT/HCPCS: 80076; 80048; 81001; 83735; 85025; 84484; 36415; 99284; 96365; 96366; 83605; 80299; 80320; 80307; J3475; J7040; A4606; A4663; G0480

== ENCOUNTER 2025-01-25 15:45 | Emergency (ER) | payer BC ==
[~2025-01-25] VITALS: Ht 160 cm; Wt 58.5 kg
[~2025-01-25 15:45] MED LIST changes: +CEFD300C3 PO; +MAGN64TA9 PO
[2025-01-25 15:51] VITALS: O2SAT 98
[2025-01-25] MEDS: IV NS 1000 ML 1,000 ML IV ONE (18:45)
[2025-01-25 19:09] LABS: BASOPHILS # (AUTO) 0.1 K/UL (0.0-0.2); BASOPHILS % (AUTO) 1.2 % (0.0-2.0); EOSINOPHILS # (AUTO) 0.2 K/uL (0.0-0.7); EOSINOPHILS % (AUTO) 3.7 % (0.0-7.0); HEMATOCRIT 36.4 % (31.2-41.9); HEMOGLOBIN 12.1 g/dL (10.9-14.3); LYMPHOCYTES # (AUTO) 2.2 K/uL (0.8-4.8); LYMPHOCYTES % (AUTO) 36.1 % (20.5-51.5); MEAN CORPUSCULAR HEMOGLOBIN 32.3 uug (24.7-32.8); MEAN CORPUSCULAR HGB CONC 33 g/dL (32.3-35.6); MONOCYTES # (AUTO) 0.4 K/uL (0.1-1.30); MONOCYTES % (AUTO) 6.5 % (0.0-11.0); NEUTROPHILS # (AUTO) 3.1 K/uL (1.8-8.9); NEUTROPHILS % (AUTO) 52.5 % (38.5-71.5); PLATELET COUNT (AUTO) 248 K/uL (179-408); RED BLOOD CELL COUNT(AUTO) 3.75 MIL/uL (3.63-4.92); RED CELL DISTRIBUTION WIDTH 14.9 % (12.3-17.7)
[2025-01-25 19:10] LABS: DIFFERENTIAL COMMENT 1
[2025-01-25 19:11] LABS: CALCIUM 8.5 mg/dL (8.5-10.1); CREATININE 0.7 mg/dL (0.6-1.3); POTASSIUM 3.4 mmol/L (3.5-5.1)
[2025-01-25 19:17] LABS: ALBUMIN 3.1 g/dL (3.4-5.0); BILIRUBIN,TOTAL 0.3 mg/dL (0.2-1.0); TOTAL PROTEIN, SERUM 6.9 g/dL (6.4-8.2)
[2025-01-25] MEDS: CLONIDINE HCL 0.1 MG TABLET PO ONE (19:45)
[2025-01-25] MEDS ORDERED: CLONIDINE HCL 0.1 MG TABLET ONE (20:04)
[2025-01-25] MEDS: POTASSIUM CHLORIDE 20 MEQ TAB.PRT.SR PO ONE (20:15)
[2025-01-25] MEDS ORDERED: NAPR-1009 PO (20:34)
[2025-01-25] MEDS: KETOROLAC TROMETHAMINE 30 MG INJ IVP ONE (21:18)
== END 2025-01-25 21:18 | disposition home or self-care (01) ==
LOC: ER 15:45
DX: M25.511 Pain in right shoulder (principal); F10.10 Alcohol abuse, uncomplicated; R51.9 Headache, unspecified; R94.31 Abnormal electrocardiogram [ECG] [EKG]; Z53.21 Procedure and treatment not carried out due to patient leaving prior to being seen by health care provider; Z88.7 Allergy status to serum and vaccine; Y90.0 Blood alcohol level of less than 20 mg/100 ml
CPT/HCPCS: 36415; 70450; 73060; 73090; 85025; A4606; A4663; G0480; J7040

== ENCOUNTER 2025-02-18 11:44 | Emergency (ER) | payer BC ==
[~2025-02-18] VITALS: Ht 160 cm; Wt 80.7 kg
[~2025-02-18 11:44] MED LIST changes: +NAPR-1009 PO
[2025-02-18 12:42] LABS: BASOPHILS # (AUTO) 0.1 K/UL (0.0-0.2); BASOPHILS % (AUTO) 1.4 % (0.0-2.0); EOSINOPHILS # (AUTO) 0.1 K/uL (0.0-0.7); EOSINOPHILS % (AUTO) 1.8 % (0.0-7.0); HEMATOCRIT 39.5 % (31.2-41.9); HEMOGLOBIN 13.3 g/dL (10.9-14.3); LYMPHOCYTES # (AUTO) 1.9 K/uL (0.8-4.8); MEAN CORPUSCULAR HEMOGLOBIN 33.5 uug (24.7-32.8); MEAN CORPUSCULAR HGB CONC 34 g/dL (32.3-35.6); MEAN CORPUSCULAR VOLUME 99.9 fL (75.5-95.3); MONOCYTES # (AUTO) 0.6 K/uL (0.1-1.30); NEUTROPHILS # (AUTO) 5.4 K/uL (1.8-8.9); NEUTROPHILS % (AUTO) 66.8 % (38.5-71.5); PLATELET COUNT (AUTO) 389 K/uL (179-408); RED BLOOD CELL COUNT(AUTO) 3.95 MIL/uL (3.63-4.92); RED CELL DISTRIBUTION WIDTH 16.4 % (12.3-17.7); WHITE BLOOD COUNT (AUTO) 8.1 K/uL (3.8-11.8)
[2025-02-18 12:54] LABS: ALBUMIN 3.1 g/dL (3.4-5.0); ALKALINE PHOSPHATASE 83 U/L (50-136); BILIRUBIN,DIRECT 0.1 mg/dL (0.0-0.2); BILIRUBIN,TOTAL 0.6 mg/dL (0.2-1.0); CARBON DIOXIDE 28 mmol/L (21-32); CHLORIDE 107 mmol/L (98-107); CREATININE 0.5 mg/dL (0.6-1.3); GLUCOSE 112 mg/dL (74-106); SODIUM SERUM 141 mmol/L (136-145); TOTAL PROTEIN, SERUM 7.8 g/dL (6.4-8.2); UREA NITROGEN, BLOOD 12 mg/dL (7-18)
[2025-02-18 12:56] LABS: DIFFERENTIAL COMMENT 1
[2025-02-18 13:08] LABS: ACETAMINOPHEN < 2.0 ug/mL (10-30); ALANINE AMINOTRANSFERASE 19 U/L (14-59); ASPARTATE AMINOTRANSFERASE 70 U/L (15-37)
[2025-02-18 13:12] LABS: POTASSIUM 8.4 mmol/L (3.5-5.1)
[2025-02-18 13:38] LABS: CALCIUM 9.2 mg/dL (8.5-10.1); CREATININE 0.6 mg/dL (0.6-1.3); POTASSIUM 4.3 mmol/L (3.5-5.1)
[2025-02-18] MEDS ORDERED: ACETAMINOPHEN 500 MG TABLET ONE (14:30)
[2025-02-18] MEDS: ACETAMINOPHEN 500 MG TABLET PO ONE (14:32)
[2025-02-18] MEDS ORDERED: ACET-3102 PO (14:33)
[2025-02-18 14:57] VITALS: BP 103/66; O2SAT 97
== END 2025-02-18 14:59 | disposition home or self-care (01) ==
LOC: ER 13:31
DX: S42.291A Other displaced fracture of upper end of right humerus, initial encounter for closed fracture (principal); F10.129 Alcohol abuse with intoxication, unspecified; R06.00 Dyspnea, unspecified; R07.9 Chest pain, unspecified; Z88.7 Allergy status to serum and vaccine; Z20.822 Contact with and (suspected) exposure to COVID-19; Z86.59 Personal history of other mental and behavioral disorders; X58.XXXA Exposure to other specified factors, initial encounter; Y93.89 Activity, other specified; Y92.89 Other specified places as the place of occurrence of the external cause; Y99.8 Other external cause status; Y90.8 Blood alcohol level of 240 mg/100 ml or more
CPT/HCPCS: 36415; 71045; 73020; 85025; A4606; A4663; A9150; G0480

== ENCOUNTER 2025-06-27 08:23 | Emergency (ER) | payer BC ==
[~2025-06-27] VITALS: Ht 160 cm; Wt 68.0 kg
[~2025-06-27 08:23] MED LIST changes: +ACET-3102 PO
[2025-06-27 08:59] LABS: PLATELET COUNT (AUTO) 179 K/uL (179-408); RED BLOOD CELL COUNT(AUTO) 3.42 MIL/uL (3.63-4.92); RED CELL DISTRIBUTION WIDTH 19.1 % (12.3-17.7); WHITE BLOOD COUNT (AUTO) 8.5 K/uL (3.8-11.8)
[2025-06-27 09:22] LABS: ETHANOL 299.0 MG/DL (0-10)
[2025-06-27 09:23] LABS: CREATININE 0.6 mg/dL (0.6-1.3); SODIUM SERUM 140 mmol/L (136-145); UREA NITROGEN, BLOOD 14 mg/dL (7-18)
[2025-06-27 09:30] LABS: LACTIC ACID 2.4 mmol/L (0.4-2.0)
[2025-06-27 09:36] LABS: ASPARTATE AMINOTRANSFERASE 437 U/L (15-37); TOTAL PROTEIN, SERUM 7.0 g/dL (6.4-8.2)
[2025-06-27] MEDS ORDERED: ONDANSETRON 4 MG/2 ML VIAL ONE (11:51)
[2025-06-27] MEDS ORDERED: HYDROMORPHONE 1 MG/1 ML DISP.SYRIN ONE (11:51)
[2025-06-27] MEDS: ONDANSETRON 4 MG/2 ML VIAL IV ONE (11:51)
[2025-06-27] MEDS: HYDROMORPHONE 1 MG/1 ML DISP.SYRIN IV ONE (11:53)
[2025-06-27 11:58] LABS: *BILIRUBIN,URIN NEGATIVE (NEGATIVE); *CLARITY,URINE CLEAR (CLEAR); *COLOR,URINE YELLOW (YELLOW); *KETONES,URINE NEGATIVE (NEGATIVE); *PROTEIN,URINE NEGATIVE (NEGATIVE); *UROBILINOGEN,URINE 0.2 E.U./dl (NORMAL); LEUKOCYTE ESTERASE ,URINE 1+ (NEGATIVE); NITRITE, URINE NEGATIVE (NEGATIVE); UGLUCOSE NEGATIVE (NEGATIVE)
[2025-06-27 12:01] LABS: *BLOOD, URINE TRACE (NEGATIVE)
[2025-06-27 12:02] LABS: SQUAMOUS EPITHELIAL CELL,UR FEW /HPF (NONE SEEN)
[2025-06-27 12:10] LABS: *AMPHETAMINE, URINE NEGATIVE (NEGATIVE); *BARBITURATE, URINE NEGATIVE (NEGATIVE); *BENZODIAZEPINE, URINE NEGATIVE (NEGATIVE); *CANNABINOID, URINE NEGATIVE (NEGATIVE); *COCCAINE, URINE NEGATIVE (NEGATIVE); *OPIATE, URINE NEGATIVE (NEGATIVE); *PHENCYCLIDINE SCREEN,URINE NEGATIVE (NEGATIVE); FENTANYL, URINE NEGATIVE (NEGATIVE)
[2025-06-27 17:15] VITALS: BP 112/78; O2SAT 95
== END 2025-06-27 17:30 | disposition short-term general hospital (02) ==
LOC: ER 08:23
DX: S72.145A Nondisplaced intertrochanteric fracture of left femur, initial encounter for closed fracture (principal); S42.291A Other displaced fracture of upper end of right humerus, initial encounter for closed fracture; S00.91XA Abrasion of unspecified part of head, initial encounter; F10.129 Alcohol abuse with intoxication, unspecified; R07.9 Chest pain, unspecified; M25.511 Pain in right shoulder; I51.7 Cardiomegaly; R55 Syncope and collapse; Z88.7 Allergy status to serum and vaccine; Z79.899 Other long term (current) drug therapy; Z20.822 Contact with and (suspected) exposure to COVID-19; X58.XXXA Exposure to other specified factors, initial encounter; Y93.89 Activity, other specified; Y92.89 Other specified places as the place of occurrence of the external cause; Y99.8 Other external cause status; Y90.0 Blood alcohol level of less than 20 mg/100 ml
CPT/HCPCS: 80076; 80048; 81001; 82140; 82962; 84443; 85025; 85730; 87426; 87040 ×2; 87086; 84484; 36415; 71045; 73020; 70450; 70486; 72125; 74176; 51702; 93005; 99291; 96374; 96375; 83605 ×2; 80299; 80320; 80307; J2405; J1171; A4606; A4663; G0480

== ENCOUNTER 2025-07-12 15:50 | Emergency (ER) | payer BC, MEDICAID ==
[~2025-07-12] VITALS: Ht 160 cm; Wt 76.7 kg
[2025-07-12 15:54] VITALS: BP 109/67
[2025-07-12] MEDS ORDERED: OXYC10TA49 PO (16:01)
[2025-07-12] MEDS ORDERED: OXYC5TAB3 PO (16:01)
[2025-07-12] MEDS ORDERED: OXYC-128 PO (16:25)
[2025-07-12 18:24] VITALS: BP 113/70; O2SAT 98
== END 2025-07-12 18:25 | disposition home or self-care (01) ==
LOC: ER 15:50
DX: S71.012D Laceration without foreign body, left hip, subsequent encounter (principal); Z48.02 Encounter for removal of sutures; Z86.59 Personal history of other mental and behavioral disorders; Z88.7 Allergy status to serum and vaccine; X58.XXXD Exposure to other specified factors, subsequent encounter
CPT/HCPCS: A4606; A4663